=== PATIENT | female | born 1960 | race Caucasian/White ===

== ENCOUNTER 2020-06-08 22:47 | Inpatient (IN) | payer MEDICARE, OTHER ==
[2020-06-08] MEDS ORDERED: IPRATROPIUM-ALBUTEROL 3 ML NEB INHALATION STA (23:09)
--- NOTE | 2020-06-08 23:22 | ED ---
General Adult HPI - General Chief complaint: Shortness of Breath Stated complaint: JAYA Time Seen by Provider: 06/08/20 22:56 Source: EMS Mode of arrival: EMS - History of Present Illness Initial comments: 60-year-old previous smoker with history of congestive heart failure, coronary artery disease, morbid obesity, dyslipidemia presenting to the ER today for chief complaint of shortness of breath. Patient states this evening she became short of breath. She states she could hear audible wheezing. Patient denies any chest pain pressure jaw or arm pain nausea vomiting. She denies any pain in the back or abdomen.patient states she is no diagnosed history of COPD states she frequent find herself wheezing. Patient states she has not noticed any increase in weight or leg swelling. Pt denies pain on inspiration hemoptysis history DVT pulmonary embolism or unilateral leg swelling. She states she did miss her dose of Lasix this morning. Patient states that she received a breathing treatment in the ambulance which almost immediately reversed her symptoms. Patient states she is feeling much less short of breath at this time. - Related Data Home Medications Medication Instructions Recorded Confirmed Atorvastatin Calcium [Lipitor] 80 mg PO HS 10/16/13 02/25/17 Clopidogrel Bisulfate [Plavix] 75 mg PO DAILY 10/16/13 02/25/17 Metoprolol Tartrate [Lopressor] 50 mg PO BID 10/16/13 02/25/17 PARoxetine HCL [Paxil] 40 mg PO DAILY 10/16/13 02/25/17 Hydrocodone/Acetaminophen 1 tab PO Q4H PRN 09/09/15 02/25/17 [Hydrocodone-Acetamin 10-325 mg] Levothyroxine Sodium [Synthroid] 200 mcg PO DAILY 09/09/15 02/25/17 rOPINIRole HCL [Requip] 1 mg PO HS 09/09/15 02/25/17 Furosemide [Lasix] 20 mg PO DAILY 02/19/17 02/25/17 Previous Rx's Medication Instructions Recorded Amoxicillin/Potassium Clav 1 tab PO Q12HR #20 tab 02/23/17 [Augmentin 875-125 Tablet] amLODIPine [Norvasc] 5 mg PO DAILY #30 tab 02/23/17 lisinopriL [Zestril] 20 mg PO BID #60 tab 02/23/17 Allergies Allergy/AdvReac Type Severity Reaction Status Date / Time Iodinated Contrast Media Allergy Severe Anaphylaxis Verified 06/08/20 22:58 [Iodinated Contrast Media - IV Dye] ketorolac tromethamine Allergy Severe Anaphylaxis Verified 06/08/20 22:58 [From Toradol] methylprednisolone sodium Allergy Severe Anaphylaxis Verified 06/08/20 22:58 succinate [From Solu-Medrol] heparin AdvReac Rash/Hives Verified 06/08/20 22:58 Review of Systems ROS Statement: Those systems with pertinent positive or pertinent negative responses have been documented in the HPI. ROS Other: All systems not noted in ROS Statement are negative. Past Medical History Past Medical History: Heart Failure, Hypertension, Myocardial Infarction (MS) Additional Past Medical History / Comment(s): hx anemia, diverticulitis, colostomy, migraines, hypoglycemia, hx kidney stone, edwards cyst behind rt knee Last Myocardial Infarction Date:: 04/14/13 History of Any Multi-Drug Resistant Organisms: None Reported Past Surgical History: Bariatric Surgery, Bowel Resection, Section, Cholecystectomy, Heart Catheterization With Stent, Orthopedic Surgery Additional Past Surgical History / Comment(s): thyroidectomy,rt oopherectomy, left knee arthroscopic, bariatric sleeve, carmela heel spurs, lab band Past Anesthesia/Blood Transfusion Reactions: Postoperative Nausea & Vomiting (PONV) Additional Past Anesthesia/Blood Transfusion Reaction / Comment(s): Pt has received blood in past without reaction. Date of Last Stent Placement:: 2012 Past Psychological History: No Psychological Hx Reported Smoking Status: Former smoker Past Alcohol Use History: None Reported Past Drug Use History: None Reported - Past Family History Father Family Medical History: Myocardial Infarction (MS) Additional Family Medical History / Comment(s): Father of a MS at the age of 64 yrs. Mother Family Medical History: Musculoskeletal Disorder, Neurologic Disorder Additional Family Medical History / Comment(s): Mother of MS at the age of 64 yrs. General Exam - General Exam Comments Initial Comments: General: The patient is awake and alert, in no distress Eye: Pupils are equal, round and reactive to light, extra-ocular movements are intact. No nystagmus. There is normal conjunctiva bilaterally. No signs of icterus. Ears, nose, mouth and throat: There are moist mucous membranes and no oral lesions. Neck: The neck is supple, there is no tenderness or JVD. Cardiovascular: There is a regular rate and rhythm. No murmur, rub or gallop is appreciated. Respiratory: Respirations are non-labored, breath sounds are equal. INspiratory/expirator wheeze, rhonchi. NO stridor, rales.nno retractions no abdominal breathing Gastrointestinal: Soft, non-distended, non-tender abdomen without masses or organomegaly noted. There is no rebound or guarding present. Musculoskeletal: Normal ROM, no tenderness. Strength 5/5. Sensation intact. Radial and DP pulses equal bilaterally 2+. Neurological: A&O x 3. CN II-XII intact grossly, There are no obvious motor or sensory deficits. Coordination appears grossly intact. Speech is normal. Skin: Skin is warm and dry and no rashes or lesions are noted. Large LE b/l, nonpitting suspected edema. Psychiatric: Cooperative, appropriate mood & affect, normal judgment. Course Vital Signs 06/08/20 06/08/20 06/09/20 22:56 23:15 00:15 Temperature 98.1 F Pulse Rate 92 Respiratory 24 24 Rate Blood Pressure 222/130 183/107 O2 Sat by Pulse 86 L Oximetry 06/09/20 06/09/20 06/09/20 00:23 00:57 01:08 Temperature Pulse Rate 82 83 87 Respiratory 22 Rate Blood Pressure 178/117 O2 Sat by Pulse 98 Oximetry 06/09/20 06/09/20 01:11 01:19 Temperature Pulse Rate 84 Respiratory Rate Blood Pressure 195/96 O2 Sat by Pulse Oximetry - Reevaluation(s) Reevaluation #1: pt evaluated by attending 06/09/20 Reevaluation #2: Pt walked to bathroom admitted to increased SOB, BP remained elevated--cxr pulmonary edema. pt given SL nitroglycerin. Pt does not appear in distress. 06/09/20 12:58 Medical Decision Making - Medical Decision Making Labs stable. Troponin (-). obvious wheeze. no significant tachypnea nor retr actions or abdominal breathing. Diminished lung sounds/air movement. cxr pulmonary edema vs RDS. BNP elevated. Patient improved after total of 4 treatments as far as air movement and wheezing. patient was givne nitroglycerin for BP readings, hx of CHF and pulmonary edema on CXR. Patient will be admitted for monitoring of respiratory status, cardiology evaluation. Patient statse she is "breathing much better"--continues to deny chest pain. BP improved. Dr Wilder agreeable to care plan. - Lab Data Result diagrams: 06/08/20 23:21 06/08/20 23:21 Lab Results 06/08/20 06/08/20 06/08/20 Range/Units 23:21 23:21 23:21 WBC 5.6 (3.8-10.6) k/uL RBC 4.46 (3.80-5.40) m/uL Hgb 13.3 (11.4-16.0) gm/dL Hct 41.4 (34.0-46.0) % MCV 92.9 (80.0-100.0) fL MCH 29.8 (25.0-35.0) pg MCHC 32.1 (31.0-37.0) g/dL RDW 14.6 (11.5-15.5) % Plt Count 110 L (150-450) k/uL MPV 10.4 Neutrophils % 78 % Lymphocytes % 12 % Monocytes % 5 % Eosinophils % 3 % Basophils % 0 % Neutrophils # 4.4 (1.3-7.7) k/uL Lymphocytes # 0.7 L (1.0-4.8) k/uL Monocytes # 0.3 (0-1.0) k/uL Eosinophils # 0.2 (0-0.7) k/uL Basophils # 0.0 (0-0.2) k/uL PT 11.0 (9.0-12.0) sec INR 1.0 (<1.2) APTT 26.5 (22.0-30.0) sec Sodium 139 (137-145) mmol/L Potassium 5.1 (3.5-5.1) mmol/L Chloride 105 (98-107) mmol/L Carbon Dioxide 27 (22-30) mmol/L Anion Gap 7 mmol/L BUN 26 H (7-17) mg/dL Creatinine 0.92 (0.52-1.04) mg/dL Est GFR (CKD-EPI)AfAm 78 (>60 ml/min/1.73 sqM) Est GFR (CKD-EPI)NonAf 68 (>60 ml/min/1.73 sqM) Glucose 118 H (74-99) mg/dL Plasma Lactic Acid Jamison (0.7-2.0) mmol/L Calcium 8.8 (8.4-10.2) mg/dL Total Bilirubin 0.9 (0.2-1.3) mg/dL AST 46 H (14-36) U/L ALT 22 (4-34) U/L Alkaline Phosphatase 75 (38-126) U/L Troponin I (0.000-0.034) ng/mL NT-Pro-B Natriuret Pep pg/mL Total Protein 7.2 (6.3-8.2) g/dL Albumin 3.8 (3.5-5.0) g/dL Coronavirus (PCR) (Not Detectd) 06/08/20 06/08/20 06/08/20 Range/Units 23:21 23:21 23:21 WBC (3.8-10.6) k/uL RBC (3.80-5.40) m/uL Hgb (11.4-16.0) gm/dL Hct (34.0-46.0) % MCV (80.0-100.0) fL MCH (25.0-35.0) pg MCHC (31.0-37.0) g/dL RDW (11.5-15.5) % Plt Count (150-450) k/uL MPV Neutrophils % % Lymphocytes % % Monocytes % % Eosinophils % % Basophils % % Neutrophils # (1.3-7.7) k/uL Lymphocytes # (1.0-4.8) k/uL Monocytes # (0-1.0) k/uL Eosinophils # (0-0.7) k/uL Basophils # (0-0.2) k/uL PT (9.0-12.0) sec INR (<1.2) APTT (22.0-30.0) sec Sodium (137-145) mmol/L Potassium (3.5-5.1) mmol/L Chloride (98-107) mmol/L Carbon Dioxide (22-30) mmol/L Anion Gap mmol/L BUN (7-17) mg/dL Creatinine (0.52-1.04) mg/dL Est GFR (CKD-EPI)AfAm (>60 ml/min/1.73 sqM) Est GFR (CKD-EPI)NonAf (>60 ml/min/1.73 sqM) Glucose (74-99) mg/dL Plasma Lactic Acid Jamison 1.3 (0.7-2.0) mmol/L Calcium (8.4-10.2) mg/dL Total Bilirubin (0.2-1.3) mg/dL AST (14-36) U/L ALT (4-34) U/L Alkaline Phosphatase (38-126) U/L Troponin I 0.015 (0.000-0.034) ng/mL NT-Pro-B Natriuret Pep 2790 pg/mL Total Protein (6.3-8.2) g/dL Albumin (3.5-5.0) g/dL Coronavirus (PCR) (Not Detectd) 06/08/20 Range/Units 23:21 WBC (3.8-10.6) k/uL RBC (3.80-5.40) m/uL Hgb (11.4-16.0) gm/dL Hct (34.0-46.0) % MCV (80.0-100.0) fL MCH (25.0-35.0) pg MCHC (31.0-37.0) g/dL RDW (11.5-15.5) % Plt Count (150-450) k/uL MPV Neutrophils % % Lymphocytes % % Monocytes % % Eosinophils % % Basophils % % Neutrophils # (1.3-7.7) k/uL Lymphocytes # (1.0-4.8) k/uL Monocytes # (0-1.0) k/uL Eosinophils # (0-0.7) k/uL Basophils # (0-0.2) k/uL PT (9.0-12.0) sec INR (<1.2) APTT (22.0-30.0) sec Sodium (137-145) mmol/L Potassium (3.5-5.1) mmol/L Chloride (98-107) mmol/L Carbon Dioxide (22-30) mmol/L Anion Gap mmol/L BUN (7-17) mg/dL Creatinine (0.52-1.04) mg/dL Est GFR (CKD-EPI)AfAm (>60 ml/min/1.73 sqM) Est GFR (CKD-EPI)NonAf (>60 ml/min/1.73 sqM) Glucose (74-99) mg/dL Plasma Lactic Acid Jamison (0.7-2.0) mmol/L Calcium (8.4-10.2) mg/dL Total Bilirubin (0.2-1.3) mg/dL AST (14-36) U/L ALT (4-34) U/L Alkaline Phosphatase (38-126) U/L Troponin I (0.000-0.034) ng/mL NT-Pro-B Natriuret Pep pg/mL Total Protein (6.3-8.2) g/dL Albumin (3.5-5.0) g/dL Coronavirus (PCR) Not Detected (Not Detectd) Disposition Clinical Impression: Dyspnea, Pulmonary edema, Reactive airway disease, Hypertension Disposition: ADMITTED IP TO THIS HOSP Condition: Stable Is patient prescribed a controlled substance at d/c from ED?: No Time of Disposition: :33 Decision to Admit Reason: Admit from EC Decision Date: 06/09/20 Decision Time: 01:33
[2020-06-08] MEDS ORDERED: ENALAPRILAT 1.25 MG/ML 1 ML VIAL IVP STA (23:29)
--- NOTE | 2020-06-08 23:31 | XR ---
EXAMINATION TYPE: XR chest 1V portable DATE OF EXAM: 06/08/2020 COMPARISON: 09/05/2014 HISTORY: Short of breath TECHNIQUE: FINDINGS: Heart and mediastinum are normal. There is coarse pulmonary interstitial and airspace edema . Exam is limited by the patient's size. IMPRESSION: There is new pulmonary edema compared to old exam. This could be acute heart failure or R DS.
[2020-06-08] MEDS ORDERED: FUROSEMIDE 10 MG/ML 4 ML VIAL IV STA (23:33)
[2020-06-08 23:37] LABS: Basophils % (A) 0 %; Eosinophils # (A) 0.2 k/uL (0-0.7); Eosinophils % (A) 3 %; HCT 41.4 % (34.0-46.0); HGB 13.3 gm/dL (11.4-16.0); Lymphocytes # (A) 0.7 k/uL (1.0-4.8); Lymphocytes % (A) 12 %; MCH 29.8 pg (25.0-35.0); MCHC 32.1 g/dL (31.0-37.0); MCV 92.9 fL (80.0-100.0); Mean Platelet Volume 10.4; Monocytes # (A) 0.3 k/uL (0-1.0); Monocytes % (A) 5 %; Neutrophils # (A) 4.4 k/uL (1.3-7.7); Neutrophils % (A) 78 %; Platelet Count 110 k/uL (150-450); RBC 4.46 m/uL (3.80-5.40); RDW 14.6 % (11.5-15.5); WBC 5.6 k/uL (3.8-10.6)
[2020-06-08 23:47] LABS: Albumin 3.8 g/dL (3.5-5.0); Calcium 8.8 mg/dL (8.4-10.2); Potassium 5.1 mmol/L (3.5-5.1); Total Bilirubin 0.9 mg/dL (0.2-1.3); Total Protein 7.2 g/dL (6.3-8.2)
[2020-06-09 00:08] LABS: Partial Thromboplastin Time 26.5 sec (22.0-30.0)
[2020-06-09] MEDS ORDERED: NITROGLYCERIN SL TABS 0.4 MG TAB SUBLINGUAL PRN (00:38)
[2020-06-09] MEDS ORDERED: NITROGLYCERIN SL TABS 0.4 MG TAB SUBLINGUAL STA ×2 (00:49→01:30)
[2020-06-09] MEDS ORDERED: IPRATROPIUM-ALBUTEROL 3 ML NEB INHALATION STA (00:51)
[2020-06-09] MEDS ORDERED: NITROGLYCERIN OINT 1 INCH/GM PACKET TOPICAL STA (01:20)
[2020-06-09] MEDS ORDERED: IPRATROPIUM-ALBUTEROL 3 ML NEB INHALATION SCH (02:00)
[2020-06-09] MEDS: IPRATROPIUM-ALBUTEROL 3 ML NEB INHALATION SCH ×5 (04:23→20:39)
[2020-06-09] MEDS ORDERED: amLODIPine 5 MG TAB PO SCH (09:00)
[2020-06-09] MEDS ORDERED: FUROSEMIDE 20 MG TAB PO SCH (09:00)
[2020-06-09] MEDS: MULTIVITAMINS, THERA 1 EACH TAB PO SCH (09:41)
[2020-06-09] MEDS: lisinopriL 20 MG TAB PO SCH ×2 (09:41→20:06)
[2020-06-09] MEDS: CLOPIDOGREL 75 MG TAB PO SCH (09:41)
[2020-06-09] MEDS: METOPROLOL TARTRATE 50 MG TAB PO SCH ×2 (09:42→20:05)
[2020-06-09] MEDS: PARoxetine 20 MG TAB PO SCH (09:42)
[2020-06-09] MEDS: FUROSEMIDE 10 MG/ML 4 ML VIAL IV SCH ×2 (09:42→16:06)
[2020-06-09] MEDS: ASPIRIN 81 MG PO SCH (09:42)
[2020-06-09] MEDS: LEVOTHYROXINE 100 MCG TAB PO SCH (09:46)
[2020-06-09] MEDS: buPROPion XL 150 MG TAB.ER.24H PO SCH (10:24)
[2020-06-09] MEDS: SILVER sulfADIAZINE Cream 400 GM 1 APPLIC APPLIC TOPICAL SCH (10:25)
[2020-06-09] MEDS ORDERED: MINERAL OIL-WHITE PETROLATUM 120 GM JAR TOPICAL PRN (11:24)
[2020-06-09] MEDS ORDERED: amLODIPine 5 MG TAB PO STA (11:31)
[2020-06-09] MEDS ORDERED: diphenhydrAMINE 50 MG/ML 1 ML VIAL IVP PRN (11:34)
[2020-06-09] MEDS: ENOXAPARIN 40 MG/0.4 ML SYRINGE SQ SCH (12:38)
[2020-06-09] MEDS: NITROGLYCERIN OINT 1 INCH/GM PACKET TOPICAL SCH ×2 (12:39→21:57)
[2020-06-09] MEDS: HYDROcodone/APAP 10-325MG 1 EACH TAB PO PRN ×3 (14:05→21:57)
--- NOTE | 2020-06-09 18:50 | CONS ---
CONSULTATION CHIEF COMPLAINT: Sudden onset shortness of breath. Radha is a 60-year-old lady with history of coronary artery disease, status post prior multiple myocardial infarctions, hypertension, who is admitted to hospital with sudden onset shortness of breath at home. She was found to be in pulmonary edema and Cardiology has been consulted for the same. EKG shows sinus rhythm with anterolateral ST-T wave changes suggestive of ischemia. Lab showed that the tropes are negative, coronavirus is negative, BNP is elevated at 2790. A chest x-ray shows pulmonary edema. The patient has received IV Lasix with significant improvement in her symptoms. PAST MEDICAL HISTORY: Significant for hypertension, COPD, hypothyroidism, coronary artery disease, prior myocardial infarction. MEDICATIONS: Include Requip, Zestril, Wellbutrin, Norvasc 5 daily, Paxil 40 daily, multivitamins, Lopressor 50 b.i.d., Synthroid, Lasix 20 daily, Plavix 75 daily, Lipitor 80, aspirin. ALLERGIES: Patient is allergic to IV DYE. FAMILY HISTORY: Negative for premature coronary artery disease. SOCIAL HISTORY: Negative for smoking, EtOH abuse, or drug abuse. REVIEW OF SYSTEMS: HEENT is unremarkable. CARDIAC: As described above. RESPIRATORY: As described above. GI: Negative. GENITOURINARY: Negative. ALLERGY: None. SKIN: Unremarkable. MUSCULOSKELETAL: Significant for arthritis. PSYCHOSOCIAL: Negative. ENDOCRINE: Negative. CONSTITUTIONAL: Negative. ONCOLOGICAL: Negative. YARDER PUNCHER: Negative. Rest of the system review is not relevant. EXAM: Heart rate is 60 beats per minute, blood pressure is 170/93, respiratory is 18. Chest exam reveals good air entry bilaterally without any crackles or rhonchi. Heart exam reveals first and second heart sounds. No gallop. Has a systolic murmur at the apex. Abdomen is soft. Exam of extremities did not reveal any edema. Peripheral pulses are felt. LAB: Show a hemoglobin of 13.3, platelet count is 110. Potassium is 5, creatinine is 0.9. Troponins are negative. BNP is elevated. Coronavirus is negative. ASSESSMENT: 1. Acute onset pulmonary edema. 2. Hypertensive heart disease with hypertensive urgency. 3. Coronary artery disease status post prior myocardial infarction. PLAN: I will obtain a 2D echo to evaluate her LV function, treat her with IV Lasix, control her blood pressures more optimally by increasing the dose of Norvasc. I will continue aspirin, Plavix, Lipitor and Zestril and start her on Nitropaste 1 inch t.i.d. We will adjust her medications as needed based on how she responds to therapy. MMEDILMAL / IJN: [id number] /
[2020-06-09] MEDS: ATORVASTATIN 80 MG TAB PO SCH (20:05)
--- NOTE | 2020-06-09 23:27 | P.HPIM ---
History of Present Illness H&P Date: 06/09/20 Chief Complaint: Shortness of breath. Patient is a 60-year-old female with a known history of coronary artery disease with stent placement x2, CHF, previous history of smoking and morbid obesity presents to ER with complaints of worsening shortness of breath. Patient states that he has been having worsening shortness of breath, exertional dyspnea and leg swelling for the past 2 weeks and last night it got worse and which made her to come to ER. Patient felt like chest tightness. No radiation of the chest pain. No associated nausea vomiting or diaphoresis. No headache or dizziness or lightheadedness. No recent illnesses. No cough or sputum production. Patient has previous history of smoking. Chest x-ray showed there is new pulmonary edema compared to old exam. Could be due to acute heart failure or RDS. EKG showed sinus rhythm with premature atrial complexes. Laboratory data showed BUN 26 creatinine 0.92, AST 46 ALT 22, troponin x3 - and proBNP 2790 and COVID-19 PCR is not detected. Review of Systems Constitutional: Patient denies any fever or chills . No generalized weakness or weight loss. Abdomen: Patient denied nausea vomiting and diarrhea and abdominal pain. Cardiovascular: Patient denies any chest pain, worsening short of breath no palpitations. Respiratory: patient denied any cough or sputum production. No shortness of breath Neurologic: Patient denied any numbness or tingling headache. Musculoskeletal: Patient denies any complaints of joint swelling or deformity. Skin: Negative Psychiatric: Negative Endocrine: No heat or cold intolerance. No recent weight gain. Genitourinary: No dysuria or hematuria. All other 14 point ROS negative except the above Past Medical History Past Medical History: Heart Failure, Hypertension, Myocardial Infarction (LA) Additional Past Medical History / Comment(s): hx anemia, diverticulitis, colostomy, migraines, hypoglycemia, hx kidney stone, edwards cyst behind rt knee Last Myocardial Infarction Date:: 04/14/13 History of Any Multi-Drug Resistant Organisms: None Reported Past Surgical History: Bariatric Surgery, Bowel Resection, Section, Cholecystectomy, Heart Catheterization With Stent, Orthopedic Surgery Additional Past Surgical History / Comment(s): thyroidectomy,rt oopherectomy, le ft knee arthroscopic, bariatric sleeve, carmela heel spurs, lab band Past Anesthesia/Blood Transfusion Reactions: Postoperative Nausea & Vomiting (PONV) Additional Past Anesthesia/Blood Transfusion Reaction / Comment(s): Pt has received blood in past without reaction. Date of Last Stent Placement:: 2012 Past Psychological History: No Psychological Hx Reported Additional Psychological History / Comment(s): Pt resides with her spouse and an adult son and 2 roomates. Pt uses a cane if outside the home. Pt drives. Smoking Status: Former smoker Past Alcohol Use History: None Reported Additional Past Alcohol Use History / Comment(s): Pt started smoking in 1978 and quit in 2002. Past Drug Use History: None Reported - Past Family History Father Family Medical History: Myocardial Infarction (LA) Additional Family Medical History / Comment(s): Father of a LA at the age of 64 yrs. Mother Family Medical History: Musculoskeletal Disorder, Neurologic Disorder Additional Family Medical History / Comment(s): Mother of MS at the age of 64 yrs. Medications and Allergies Home Medications Medication Instructions Recorded Confirmed Type Atorvastatin Calcium [Lipitor] 80 mg PO HS 10/16/13 06/09/20 History Clopidogrel Bisulfate [Plavix] 75 mg PO DAILY 10/16/13 06/09/20 History Metoprolol Tartrate [Lopressor] 50 mg PO BID 10/16/13 06/09/20 History PARoxetine HCL [Paxil] 40 mg PO DAILY 10/16/13 06/09/20 History Hydrocodone/Acetaminophen 1 tab PO QID PRN 09/09/15 06/09/20 History [Hydrocodone-Acetamin 10-325 mg] Levothyroxine Sodium [Synthroid] 200 mcg PO DAILY 09/09/15 06/09/20 History rOPINIRole HCL [Requip] 1 mg PO HS 09/09/15 06/09/20 History Furosemide [Lasix] 20 mg PO DAILY 02/19/17 06/09/20 History amLODIPine [Norvasc] 5 mg PO DAILY #30 tab 02/23/17 06/09/20 Rx lisinopriL [Zestril] 20 mg PO BID #60 tab 02/23/17 06/09/20 Rx Aspirin EC [Ecotrin Low Dose] 81 mg PO DAILY 06/09/20 06/09/20 History Multivitamins, Thera [Multivitamin 1 tab PO DAILY 06/09/20 06/09/20 History (formulary)] Silver Sulfadiazine [SSD 1% Cream] 1 applic TOPICAL DAILY 06/09/20 06/09/20 History buPROPion XL [Wellbutrin Xl] 150 mg PO DAILY 06/09/20 06/09/20 History Allergies Allergy/AdvReac Type Severity Reaction Status Date / Time Iodinated Contrast Media Allergy Severe Anaphylaxis Verified 06/09/20 08:26 [Iodinated Contrast Media - IV Dye] ketorolac tromethamine Allergy Severe Anaphylaxis Verified 06/09/20 08:26 [From Toradol] methylprednisolone sodium Allergy Severe Anaphylaxis Verified 06/09/20 08:26 succinate [From Solu-Medrol] heparin AdvReac Rash/Hives Verified 06/09/20 08:26 Physical Exam Vitals: Vital Signs Temp Pulse Pulse Resp BP BP Pulse Ox 06/09/20 08:20 80 06/09/20 08:10 76 06/09/20 07:54 98.6 F 105 H 18 173/93 92 L 06/09/20 04:37 84 06/09/20 04:23 82 06/09/20 04:00 98.0 F 72 18 161/108 95 06/09/20 02:28 20 06/09/20 02:05 97.9 F 86 20 165/98 99 06/09/20 01:19 195/96 06/09/20 01:11 84 06/09/20 01:08 87 22 178/117 98 06/09/20 00:57 83 06/09/20 00:23 82 06/09/20 00:15 183/107 06/08/20 23:15 24 06/08/20 22:56 98.1 F 92 24 222/130 86 L Intake and Output 06/08/20 06/09/20 06/09/20 22:59 06:59 14:59 Intake Total 240 120 Output Total 1800 1175 Balance -1560 -1055 Intake: Oral 240 120 Output: Urine 1800 1175 Other: Voiding Method Toilet # Voids 2 Weight 145.15 kg 171.7 kg PHYSICAL EXAMINATION: Patient is lying in the bed comfortably, no acute distress, awake alert and oriented.. HEENT: Normocephalic. Neck is supple. Pupils reactive. Nostrils clear. Oral ca vity is moist. Ears reveal no drainage. Neck reveals no JVD, carotid bruits, or thyromegaly. CHEST EXAMINATION: Trachea is central. Symmetrical expansion. Bibasilar crackles. No wheezing nonlabored breathing.. CARDIAC: Normal S1, S2 with no gallops. No murmurs ABDOMEN: Soft. Bowel sounds normal. No organomegaly. No abdominal bruits. Extremities: Bilateral 3+ pedal edema. Venous stasis changes. No clubbing or cyanosis Neurologically awake, alert, oriented x3 with well-coordinated movements. No focal deficits noted Skin: No rash or skin lesions. Psychiatric: Coperative. Nonsuicidal Musculoskeletal: No joint swelling or deformity. Normal range of motion. Results CBC & Chem 7: 06/08/20 23:21 06/08/20 23:21 Labs: Abnormal Lab Results - Last 24 Hours (Table) 06/08/20 06/08/20 Range/Units 23:21 23:21 Plt Count 110 L (150-450) k/uL Lymphocytes # 0.7 L (1.0-4.8) k/uL BUN 26 H (7-17) mg/dL Glucose 118 H (74-99) mg/dL AST 46 H (14-36) U/L Thrombosis Risk Factor Assmnt - DVT/VTE Prophylaxis DVT/VTE Prophylaxis: Pharmacologic Prophylaxis ordered - Choose All That Apply Any of the Below Risk Factors Present?: Yes Each Factor Represents 1 point: Obesity (BMI >25) Other Risk Factors: No Thrombosis Risk Factor Assessment Total Risk Factor Score: 1 Thrombosis Risk Factor Assessment Level: Low Risk Assessment and Plan Assessment: Shortness of breath secondary to acute on chronic CHF. followup TTE Acute pulmonary edema Hypertensive urgency Coronary artery disease history of stent placement Morbid obesity with BMI 67.1 DVT prophylaxis with Lovenox. Plan: Patient will be continued Lasix 40 mg IV twice daily and monitor renal function. Continue the aspirin statins and Plavix. Continue with home medications including metoprolol and lisinopril. Cardiology was consulted. Follow-up 2D echocardiogram report and further recommendations based on clinical course. Time with Patient: Greater than 30
[2020-06-10] MEDS: IPRATROPIUM-ALBUTEROL 3 ML NEB INHALATION SCH ×6 (00:11→19:27)
[2020-06-10 02:51] LABS: Cholesterol 170 mg/dL (<200); HDL Cholesterol 52 mg/dL (40-60); LDL Cholesterol,Calculated 100 mg/dL (0-99); Triglycerides 88 mg/dL (<150)
[2020-06-10] MEDS: NITROGLYCERIN OINT 1 INCH/GM PACKET TOPICAL SCH ×3 (05:49→19:41)
[2020-06-10] MEDS: HYDROcodone/APAP 10-325MG 1 EACH TAB PO PRN ×5 (05:50→23:54)
[2020-06-10] MEDS: LEVOTHYROXINE 100 MCG TAB PO SCH (06:21)
[2020-06-10 09:35] LABS: HCT 43.4 % (34.0-46.0); HGB 13.4 gm/dL (11.4-16.0); Hypochromasia Slight; MCH 29.3 pg (25.0-35.0); MCHC 30.9 g/dL (31.0-37.0); MCV 94.8 fL (80.0-100.0); Mean Platelet Volume 9.5; Platelet Count 123 k/uL (150-450); RBC 4.58 m/uL (3.80-5.40); RDW 14.5 % (11.5-15.5); WBC 6.9 k/uL (3.8-10.6)
[2020-06-10 09:47] LABS: Potassium 4.1 mmol/L (3.5-5.1)
[2020-06-10] MEDS: amLODIPine 10 MG TAB PO SCH (09:49)
[2020-06-10] MEDS: ASPIRIN 81 MG PO SCH (09:49)
[2020-06-10] MEDS: lisinopriL 20 MG TAB PO SCH ×2 (09:50→19:41)
[2020-06-10] MEDS: METOPROLOL TARTRATE 50 MG TAB PO SCH ×2 (09:50→19:41)
[2020-06-10] MEDS: MULTIVITAMINS, THERA 1 EACH TAB PO SCH (09:50)
[2020-06-10] MEDS: PARoxetine 20 MG TAB PO SCH (09:50)
[2020-06-10] MEDS: ENOXAPARIN 40 MG/0.4 ML SYRINGE SQ SCH (09:50)
[2020-06-10] MEDS: CLOPIDOGREL 75 MG TAB PO SCH (09:50)
[2020-06-10] MEDS: FUROSEMIDE 10 MG/ML 4 ML VIAL IV SCH ×2 (09:50→16:39)
[2020-06-10] MEDS: SILVER sulfADIAZINE Cream 400 GM 1 APPLIC APPLIC TOPICAL SCH (09:51)
[2020-06-10] MEDS: buPROPion XL 150 MG TAB.ER.24H PO SCH (09:52)
--- NOTE | 2020-06-10 16:59 | P.PN ---
Subjective Progress Note Date: 06/10/20 This is a 60-year-old female admitted with acute on chronic CHF, acute pulmonary edema, hypertensive urgency and multiple other medical issues. Diuresing well on Lasix IV push with significant clinical improvement. Creatinine 0.89. Denies chest pain, palpitations. Maintaining O2 sats in the high 90s on 2 L nasal cannula. Hypertensive this morning, Norvasc dose increased. Objective - Vital Signs Vital signs: Vital Signs Temp 97.7 F 06/10/20 15:48 Pulse 63 06/10/20 15:48 Resp 18 06/10/20 15:48 BP 125/62 06/10/20 15:48 Pulse Ox 90 L 06/10/20 15:48 Intake & Output 06/09/20 06/10/20 06/10/20 18:59 06:59 18:59 Intake Total 420 240 760 Output Total 1925 850 600 Balance -1505 610 160 Weight 171 kg Intake: Oral 420 240 760 Output: Urine 1925 850 600 Other: Voiding Method Toilet Toilet # Voids 1 1 2 - Exam PHYSICAL EXAMINATION: GENERAL: Alert and oriented 3, lying in the bed comfortably, no acute distress HEENT: Normocephalic. Neck is supple. Pupils reactive. Oral mucosa moist. Neck reveals no JVD, carotid bruits, or thyromegaly. CHEST EXAMINATION: Trachea is central. Symmetrical expansion. No rhonchi, no crackles. No wheezing, nonlabored breathing.. CARDIAC: Normal S1, S2 with no gallops. Systolic murmur. ABDOMEN: Soft. Bowel sounds normal. No organomegaly. No abdominal bruits. Extremities: Decreasing edema, Venous stasis changes. No clubbing or cyanosis Neurologically: CN II through XII grossly intact, well-coordinated movements. No focal deficits noted Skin: No rash, warm and dry - Labs CBC & Chem 7: 06/10/20 08:55 06/10/20 08:55 Labs: Abnormal Lab Results - Last 24 Hours (Table) 06/09/20 06/10/20 06/10/20 Range/Units 05:29 08:55 08:55 MCHC 30.9 L (31.0-37.0) g/dL Plt Count 123 L (150-450) k/uL Carbon Dioxide 33 H (22-30) mmol/L BUN 19 H (7-17) mg/dL Glucose 113 H (74-99) mg/dL LDL Cholesterol, Calc 100 H (0-99) mg/dL Assessment and Plan Assessment: Shortness of breath secondary to acute on chronic CHF. Acute pulmonary edema Hypertensive urgency Coronary artery disease history of prior PR with stent placement Morbid obesity with BMI 67.1 Plan: Continue on current medication regime ,monitoring and symptomatic treatment. 2-D echo in progress. Anticoagulated on aspirin, Plavix. Continue diuresing, antihypertensives adjusted as per cardiology. Close monitoring of bl ood pressure. The impression and plan of care has been dictated as directed. : I performed a history and examination of this patient, discussed the same with the dictator. I agree with the dictator's note ,documented as a scribe. Any additional findings or plans will be noted.
--- NOTE | 2020-06-10 18:41 | ECHOF ---
Referral Reason:lv fxn MEASUREMENTS -------- HEIGHT: 160.0 cm WEIGHT: 170.6 kg BP: 158/83 IVSd: 1.6 cm (0.6 - 1.1) LVIDd: 5.3 cm (3.9 - 5.3) LVPWd: 2.1 cm (0.6 - 1.1) IVSs: 1.7 cm LVIDs: 4.6 cm LVPWs: 2.1 cm RVIDd: 4.0 cm (< 3.3) LAESV Index (A-L): 41.10 ml/m Ao Diam: 3.1 cm (2.0 - 3.7) AV Cusp: 1.7 cm (1.5 - 2.6) MV E Casey: 1.15 m/s MV DecT: 164 ms MV A Casey: 0.71 m/s MV E/A Ratio: 1.62 %FS: 14.04 % EDV(Teich): 220.56 ml EF(Teich): 29.20 % ESV(Teich): 156.17 ml IVSd: 1.50 cm (0.6 - 1.1) IVSs: 1.61 cm LVIDd: 6.56 cm (3.9 - 5.3) LVIDs: 5.64 cm LVPWd: 1.38 cm (0.6 - 1.1) LVPWs: 1.70 cm SV(Teich): 64.40 ml FINDINGS -------- Sinus rhythm with extra systolic beats. This was a technically difficult study with suboptimal views. The left ventricle is mildly dilated. There is moderate concentric left ventricular hypertrophy. Overall left ventricular systolic function is moderate-severely impaired with, an EF between 30 - 35 %. The right ventricle is moderately enlarged. LA is severely dilated >40 ml/m2 The right atrial size is normal. 5.0mg of Lumason was utilized for enhancement of images Interatrial and interventricular septum intact. There is no evidence of aortic regurgitation. There is no evidence of aortic stenosis. [id number] mitral regurgitation is present. The tricuspid valve was not well visualized. No regurgitation noted Unable to estimate RVSP due t o inadequate TR jet spectral doppler profile. There is no pulmonic regurgitation present. The aortic root size is normal. IVC Not well visulized. There is no pericardial effusion. CONCLUSIONS -------- 1. The left ventricle is mildly dilated. 2. There is moderate concentric left ventricular hypertrophy. 3. Overall left ventricular systolic function is moderate-severely impaired with, an EF between 30 - 35 %. 4. The right ventricle is moderately enlarged. 5. LA is severely dilated >40 ml/m2 6. Qnchimsj-fv-[id number] mitral regurgitation is present. HARDWARE SALES ASSISTANT: Nohemy Randall RDCS
[2020-06-10] MEDS: ATORVASTATIN 80 MG TAB PO SCH (19:41)
[2020-06-10] MEDS ORDERED: IPRATROPIUM-ALBUTEROL 3 ML NEB INHALATION PRN (20:17)
[2020-06-11] MEDS: NITROGLYCERIN OINT 1 INCH/GM PACKET TOPICAL SCH ×3 (03:07→19:37)
[2020-06-11] MEDS: HYDROcodone/APAP 10-325MG 1 EACH TAB PO PRN ×4 (05:42→23:35)
[2020-06-11] MEDS: LEVOTHYROXINE 100 MCG TAB PO SCH (05:42)
[2020-06-11] MEDS: IPRATROPIUM-ALBUTEROL 3 ML NEB INHALATION SCH ×4 (07:34→20:47)
[2020-06-11] MEDS: PARoxetine 20 MG TAB PO SCH (08:25)
[2020-06-11] MEDS: ENOXAPARIN 40 MG/0.4 ML SYRINGE SQ SCH (08:26)
[2020-06-11] MEDS: FUROSEMIDE 10 MG/ML 4 ML VIAL IV SCH ×2 (08:26→19:37)
[2020-06-11] MEDS: METOPROLOL TARTRATE 50 MG TAB PO SCH ×2 (08:26→19:37)
[2020-06-11] MEDS: amLODIPine 10 MG TAB PO SCH (08:26)
[2020-06-11] MEDS: buPROPion XL 150 MG TAB.ER.24H PO SCH (08:26)
[2020-06-11] MEDS: CLOPIDOGREL 75 MG TAB PO SCH (08:26)
[2020-06-11] MEDS: lisinopriL 20 MG TAB PO SCH ×2 (08:26→19:37)
[2020-06-11] MEDS: MULTIVITAMINS, THERA 1 EACH TAB PO SCH (08:26)
[2020-06-11] MEDS: ASPIRIN 81 MG PO SCH (08:26)
[2020-06-11] MEDS: SILVER sulfADIAZINE Cream 400 GM 1 APPLIC APPLIC TOPICAL SCH (08:27)
[2020-06-11 09:24] LABS: Basophils % (A) 1 %; Eosinophils # (A) 0.3 k/uL (0-0.7); Eosinophils % (A) 5 %; HCT 43.1 % (34.0-46.0); HGB 13.1 gm/dL (11.4-16.0); Hypochromasia Slight; Lymphocytes # (A) 0.7 k/uL (1.0-4.8); Lymphocytes % (A) 13 %; MCH 29.1 pg (25.0-35.0); MCHC 30.3 g/dL (31.0-37.0); MCV 95.8 fL (80.0-100.0); Mean Platelet Volume 9.7; Monocytes # (A) 0.4 k/uL (0-1.0); Monocytes % (A) 6 %; Neutrophils # (A) 4.1 k/uL (1.3-7.7); Neutrophils % (A) 74 %; Platelet Count 114 k/uL (150-450); RDW 14.6 % (11.5-15.5); WBC 5.6 k/uL (3.8-10.6)
[2020-06-11 09:32] LABS: Calcium 8.8 mg/dL (8.4-10.2); Potassium 4.3 mmol/L (3.5-5.1)
--- NOTE | 2020-06-11 14:05 | P.PN ---
Subjective Progress Note Date: 06/11/20 This is a 60-year-old female admitted with acute on chronic CHF, acute pulmonary edema, hypertensive urgency and multiple other medical issues. Diuresing well on Lasix IV push with significant clinical improvement. Creatinine 0.89. Denies chest pain, palpitations. Maintaining O2 sats in the high 90s on 2 L nasal cannula. Hypertensive this morning, Norvasc dose increased. 06/11/2020 Diuresing well on Lasix IV push with 24-hour I&O reflecting a negative fluid balance. Renal function mildly worsening, BUN 30, creatinine 1.11. Blood pressure remains well controlled. Echo reported moderately severe impaired LV function, EF 30-35%, moderate to severe mitral regurgitation. Denies chest pain, palpitations. Maintaining O2 sats in the 90s on 2 L nasal cannula. Objective - Vital Signs Vital signs: Vital Signs Temp 98.7 F 06/11/20 11:59 Pulse 59 L 06/11/20 11:59 Resp 20 06/11/20 11:59 BP 138/68 06/11/20 11:59 Pulse Ox 96 06/11/20 11:59 Intake & Output 06/10/20 06/11/20 06/11/20 18:59 06:59 18:59 Intake Total 996 1074 480 Output Total 846 699 0399 Balance 396 374 -1320 Weight 166.3 kg Intake: Oral 996 1074 480 Output: Urine 529 206 3326 Other: Voiding Method Toilet Toilet Toilet # Voids 2 1 - Exam PHYSICAL EXAMINATION: GENERAL: Alert and oriented 3, sitting up in bed, no acute distress HEENT: Normocephalic. Neck is supple. Pupils reactive. Oral mucosa moist. Neck reveals no JVD, carotid bruits, or thyromegaly. CHEST EXAMINATION:Symmetrical expansion.Nonlabored respiratory effort. No rhonchi, no crackles. No wheezing, CARDIAC: Normal S1, S2 with no gallops. Systolic murmur. ABDOMEN: Soft. Bowel sounds normal. No organomegaly. No abdominal bruits. Extremities: Decreasing edema, Venous stasis changes. No clubbing or cyanosis Neurologically: CN II through XII grossly intact, well-coordinated movements. No focal deficits noted Skin: No rash, warm and dry - Labs CBC & Chem 7: 06/11/20 08:13 06/11/20 08:13 Labs: Abnormal Lab Results - Last 24 Hours (Table) 06/11/20 06/11/20 Range/Units 08:13 08:13 MCHC 30.3 L (31.0-37.0) g/dL Plt Count 114 L (150-450) k/uL Lymphocytes # 0.7 L (1.0-4.8) k/uL Chloride 97 L (98-107) mmol/L Carbon Dioxide 35 H (22-30) mmol/L BUN 31 H (7-17) mg/dL Creatinine 1.11 H (0.52-1.04) mg/dL Glucose 129 H (74-99) mg/dL Assessment and Plan Assessment: Shortness of breath secondary to acute on chronic CHF systolic dysfunction, EF 30-35%,. Acute pulmonary edema Hypertensive urgency Moderate to severe mitral regurgitation Coronary artery disease history of prior [place] with stent placement Morbid obesity with BMI 67.1 Plan: Continue on current medication regime ,monitoring and symptomatic treatment. Diuresing as per cardiology, close monitoring of renal function, possibly convert over to oral tomorrow .Anticoagulated on aspirin, Plavix. EF 30-35%, obtaining prior office echos for comparison. Patient states she follows in the office with Dr. Barriga. The impression and plan of care has been dictated as directed. : I performed a history and examination of this patient, discussed the same with the dictator. I agree with the dictator's note ,documented as a scribe. Any additional findings or plans will be noted.
[2020-06-11] MEDS: ATORVASTATIN 80 MG TAB PO SCH (19:37)
[2020-06-12] MEDS: NITROGLYCERIN OINT 1 INCH/GM PACKET TOPICAL SCH ×3 (03:54→19:30)
[2020-06-12 05:04] LABS: Calcium 8.9 mg/dL (8.4-10.2); Potassium 4.1 mmol/L (3.5-5.1)
[2020-06-12] MEDS: LEVOTHYROXINE 100 MCG TAB PO SCH (05:44)
[2020-06-12] MEDS: HYDROcodone/APAP 10-325MG 1 EACH TAB PO PRN ×3 (05:44→18:44)
[2020-06-12] MEDS: IPRATROPIUM-ALBUTEROL 3 ML NEB INHALATION SCH ×4 (08:06→20:07)
[2020-06-12] MEDS: ENOXAPARIN 40 MG/0.4 ML SYRINGE SQ SCH (08:21)
[2020-06-12] MEDS: PARoxetine 20 MG TAB PO SCH (08:21)
[2020-06-12] MEDS: FUROSEMIDE 10 MG/ML 4 ML VIAL IV SCH ×2 (08:21→19:30)
[2020-06-12] MEDS: CLOPIDOGREL 75 MG TAB PO SCH (08:21)
[2020-06-12] MEDS: buPROPion XL 150 MG TAB.ER.24H PO SCH (08:22)
[2020-06-12] MEDS: ASPIRIN 81 MG PO SCH (08:22)
[2020-06-12] MEDS: MULTIVITAMINS, THERA 1 EACH TAB PO SCH (08:22)
[2020-06-12] MEDS: amLODIPine 10 MG TAB PO SCH (08:22)
[2020-06-12] MEDS: METOPROLOL TARTRATE 25 MG TAB PO SCH ×2 (08:22→19:30)
[2020-06-12] MEDS: lisinopriL 20 MG TAB PO SCH ×2 (08:22→19:30)
[2020-06-12] MEDS: SILVER sulfADIAZINE Cream 400 GM 1 APPLIC APPLIC TOPICAL SCH (08:23)
--- NOTE | 2020-06-12 08:58 | P.PN ---
Subjective Progress Note Date: 06/12/20 Principal diagnosis: Heart failure with reduced ejection fraction exacerbation/cardiomyopathy of unknown etiology This is a pleasant 60-year-old female patient with coronary artery disease as well as hypertension and obesity who was admitted to the hospital with increasing shortness of breath and she was diagnosed with pulmonary edema. The patient subsequently was started on Lasix. She underwent an echocardiogram which revealed cardiomyopathy was EF around 35%. No prior echocardiogram in the system to compare to this one. The patient was seen today. She is feeling better indeterminable shortness of breath. She still have lower extremities nonpitting edema noted and also diminished breathing sounds on examination. Currently she is on Lasix IV. She is tolerating that fairly well. The creatinine continues to be stable. She is on beta saskia as well as MADYSON inhibitor. I am going to add Aldactone to the current medical regimen. The patient need to undergo a coronary angiogram either as an inpatient or outpatient to rule out severe underlying coronary artery disease as an etiology for her cardiomyopathy unless sats procedure was performed. I am going to discuss that with her in details. Objective - Vital Signs Vital signs: Vital Signs Temp 98.6 F 06/12/20 08:20 Pulse 82 06/12/20 08:20 Resp 20 06/12/20 08:20 BP 125/65 06/12/20 08:20 Pulse Ox 95 06/12/20 08:20 Intake & Output 06/11/20 06/12/20 06/12/20 18:59 06:59 18:59 Intake Total 1020 480 240 Output Total 2200 800 Balance -1180 -320 240 Weight 164.7 kg Intake: Oral 1020 480 240 Output: Urine 2200 800 Other: Voiding Method Toilet Toilet # Voids 1 - Constitutional General appearance: Present: no acute distress - Respiratory Respiratory: bilateral: diminished - Cardiovascular Rhythm: regular Heart sounds: normal: S1, S2 - Labs CBC & Chem 7: 06/11/20 08:13 06/12/20 04:30 Labs: Abnormal Lab Results - Last 24 Hours (Table) 06/11/20 06/11/20 06/12/20 Range/Units 08:13 08:13 04:30 MCHC 30.3 L (31.0-37.0) g/dL Plt Count 114 L (150-450) k/uL Lymphocytes # 0.7 L (1.0-4.8) k/uL Chloride 97 L 96 L (98-107) mmol/L Carbon Dioxide 35 H 39 H (22-30) mmol/L BUN 31 H 35 H (7-17) mg/dL Creatinine 1.11 H 1.20 H (0.52-1.04) mg/dL Glucose 129 H 102 H (74-99) mg/dL Assessment and Plan Assessment: Assessment #1 heart failure with reduced ejection fraction exacerbation #2 cardiomyopathy of unknown etiology #3 coronary artery disease #4 hypertension #5 obesity Plan #1 continue the Lasix for additional 24 hours #2 add Aldactone to the current medical regimen #3 continue monitor the kidney function and electrolytes #4 coronary angiogram down the line
[2020-06-12] MEDS: SPIRONOLACTONE 25 MG TAB PO SCH (09:58)
--- NOTE | 2020-06-12 15:17 | P.PN ---
Subjective Progress Note Date: 06/12/20 This is a 60-year-old female admitted with acute on chronic CHF, acute pulmonary edema, hypertensive urgency and multiple other medical issues. Diuresing well on Lasix IV push with significant clinical improvement. Creatinine 0.89. Denies chest pain, palpitations. Maintaining O2 sats in the high 90s on 2 L nasal cannula. Hypertensive this morning, Norvasc dose increased. 06/11/2020 Diuresing well on Lasix IV push with 24-hour I&O reflecting a negative fluid balance. Renal function mildly worsening, BUN 30, creatinine 1.11. Blood pressure remains well controlled. Echo reported moderately severe impaired LV function, EF 30-35%, moderate to severe mitral regurgitation. Denies chest pain, palpitations. Maintaining O2 sats in the 90s on 2 L nasal cannula. 06/12/2020 continue on Lasix IV push, with decreased bodyweight. Creatinine up to 1.2. Aldactone added to med regimen. Denies chest pain, palpitations or shortness of breath. Maintaining O2 sats in the 90s on 2 L nasal cannula O2. Objective - Vital Signs Vital signs: Vital Signs Temp 98.3 F 06/12/20 11:45 Pulse 62 06/12/20 11:45 Resp 18 06/12/20 11:45 BP 152/90 06/12/20 11:45 Pulse Ox 95 06/12/20 11:45 Intake & Output 06/11/20 06/12/20 06/12/20 18:59 06:59 18:59 Intake Total 1020 480 480 Output Total 2200 800 500 Balance -1180 -320 -20 Weight 164.7 kg Intake: Oral 1020 480 480 Output: Urine 2200 800 500 Other: Voiding Method Toilet Toilet Toilet # Voids 1 - Exam PHYSICAL EXAMINATION: GENERAL: Alert and oriented 3, sitting up in bed, no acute distress. HEENT: Normocephalic. Neck is supple. Pupils reactive. Oral mucosa moist. Neck: Supple, no JVD. CHEST EXAMINATION:Symmetrical expansion.Nonlabored respiratory effort. No rhonchi, no crackles. No wheezing, CARDIAC: Normal S1, S2 with no gallops. Systolic murmur. ABDOMEN: Soft. Bowel sounds normal. No organomegaly. No abdominal bruits. Extremities: Decreasing edema, Venous stasis changes. Homer wrapped. No clubbing or cyanosis. Neurologically: CN II through XII grossly intact, well-coordinated movements. No focal deficits noted Skin: No rash, warm and dry - Labs CBC & Chem 7: 06/11/20 08:13 06/12/20 04:30 Labs: Abnormal Lab Results - Last 24 Hours (Table) 06/12/20 Range/Units 04:30 Chloride 96 L (98-107) mmol/L Carbon Dioxide 39 H (22-30) mmol/L BUN 35 H (7-17) mg/dL Creatinine 1.20 H (0.52-1.04) mg/dL Glucose 102 H (74-99) mg/dL Assessment and Plan Assessment: Shortness of breath secondary to acute on chronic CHF systolic dysfunction, EF 30-35%. Acute pulmonary edema Cardiomyopathy, etiology unclear. Hypertensive urgency. Moderate to severe mitral regurgitation Coronary artery disease history of prior [place] with stent placement Morbid obesity with BMI 67.1. Plan: Continue on current medication regime ,monitoring and symptomatic treatment. Diuresing another 24 hours as per cardiology. Close monitoring of renal function. Discharge planning for tomorrow pending cardiology clearance. The impression and plan of care has been dictated as directed. : I performed a history and examination of this patient, discussed the same with the dictator. I agree with the dictator's note ,documented as a scribe. Any additional findings or plans will be noted.
[2020-06-12] MEDS: ATORVASTATIN 80 MG TAB PO SCH (19:30)
[2020-06-13] MEDS: HYDROcodone/APAP 10-325MG 1 EACH TAB PO PRN ×4 (01:21→21:30)
[2020-06-13] MEDS: NITROGLYCERIN OINT 1 INCH/GM PACKET TOPICAL SCH (03:35)
[2020-06-13] MEDS: LEVOTHYROXINE 100 MCG TAB PO SCH (05:35)
[2020-06-13] MEDS: IPRATROPIUM-ALBUTEROL 3 ML NEB INHALATION SCH ×4 (08:17→19:21)
[2020-06-13 08:25] LABS: Potassium 4.1 mmol/L (3.5-5.1)
[2020-06-13 08:26] LABS: Calcium 9.1 mg/dL (8.4-10.2)
[2020-06-13] MEDS: METOPROLOL TARTRATE 25 MG TAB PO SCH ×2 (08:42→20:29)
[2020-06-13] MEDS: amLODIPine 10 MG TAB PO SCH (08:42)
[2020-06-13] MEDS: lisinopriL 20 MG TAB PO SCH ×2 (08:42→20:29)
[2020-06-13] MEDS: ASPIRIN 81 MG PO SCH (08:42)
[2020-06-13] MEDS: SPIRONOLACTONE 25 MG TAB PO SCH (08:42)
[2020-06-13] MEDS: PARoxetine 20 MG TAB PO SCH (08:42)
[2020-06-13] MEDS: CLOPIDOGREL 75 MG TAB PO SCH (08:42)
[2020-06-13] MEDS: buPROPion XL 150 MG TAB.ER.24H PO SCH (08:42)
[2020-06-13] MEDS: MULTIVITAMINS, THERA 1 EACH TAB PO SCH (08:42)
[2020-06-13] MEDS: ENOXAPARIN 40 MG/0.4 ML SYRINGE SQ SCH (08:43)
[2020-06-13] MEDS: FUROSEMIDE 10 MG/ML 4 ML VIAL IV SCH (08:44)
[2020-06-13] MEDS ORDERED: ASPIRIN 325 MG TAB PO STA (09:03)
[2020-06-13] MEDS ORDERED: ATORVASTATIN 80 MG TAB PO STA (09:03)
[2020-06-13] MEDS ORDERED: NITROGLYCERIN SL TABS 0.4 MG TAB SUBLINGUAL PRN (09:03)
[2020-06-13] MEDS ORDERED: ALPRAZolam 0.5 MG TAB PO PRN (09:03)
[2020-06-13] MEDS ORDERED: SODIUM CHLORIDE 0.9% 1,000 ML in EMPTY BAG 1 BAG IV ONE (09:03)
[2020-06-13] MEDS ORDERED: ALPRAZolam 0.25 MG TAB PO PRN (09:03)
[2020-06-13] MEDS ORDERED: IV FLUID CONTINUATION 1,000 ML IV ONE (11:45)
[2020-06-13] MEDS ORDERED: LIDOCAINE 1% INJ 10MG/ML (20 ML MDV) SQ ONE (11:45)
[2020-06-13] MEDS ORDERED: diphenhydrAMINE 50 MG/ML 1 ML VIAL IVP ONE (11:45)
[2020-06-13] MEDS ORDERED: MIDAZOLAM 2 MG/2 ML VIAL IVP ONE (11:45)
[2020-06-13] MEDS: VERAPAMIL SYRINGE (5 MG/10 ML) INTRAARTER ONE ×2 (11:46→11:58)
[2020-06-13] MEDS ORDERED: IOPAMIDOL-370 125ML BTL INJ ONE (11:57)
[2020-06-13] MEDS ORDERED: RX INFO: IV CONTRAST WAS GIVEN 1 EACH MISC MISCELLANE PRN (12:05)
[2020-06-13] MEDS ORDERED: SODIUM CHLORIDE 0.9% 1,000 ML IV SCH (12:15)
--- NOTE | 2020-06-13 12:30 | CC ---
CARDIAC CATHETERIZATION REPORT DATE OF SERVICE: June 13, 2020 PERFORMING PHYSICIAN: Aric Simon MD. PROCEDURE PERFORMED: 1. Selective right and left coronary angiogram. 2. Left heart catheterization. INDICATION: This is a 60-year-old female patient who was admitted to the hospital with heart failure and she underwent an echocardiogram and that revealed cardiomyopathy with EF between 25% to 30%. She is known to have coronary artery disease and prior stenting of the diagonal branch of the LAD in [address] Mariel Carnes. APPROACH: Right radial artery. COMPLICATION: None. LEVEL OF SEDATION: Moderate with sedation length of 13 minutes. PROCEDURE DESCRIPTION: After obtaining an informed consent, the patient was brought to the cardiac industrial laborer. The right radial artery was cannulated using micropuncture technique, the micropuncture wire passed easily then I placed a 5-Korean sheath in the right radial artery. I did selective right and left coronary angiogram with JR4 and JL3.5 catheters. Left heart catheterization was performed using the JR4 catheter which crossed the aortic valve then I did pullback across the valve. The procedure was completed without any complication. SELECTIVE CORONARY ANGIOGRAM: 1. The right coronary artery is a large caliber vessel. It is a dominant vessel and appeared to be angiographically normal. It distally bifurcates into PDA and PLV branches, both appeared to be angiographically normal. 2. The left main is angiographically normal. It bifurcates into LCX and LAD. 3. The LCX is a large caliber vessel. It is a nondominant vessel. The LCX is angiographically normal. 4. The LAD is a large caliber vessel. The LAD is angiographically normal. Proximally, it gives rise into a large diagonal branch which is stented and the stents are patent. HEMODYNAMICS: The LVEDP was 32 mmHg without significant gradient across the aortic valve. CONCLUSION: 1. Patent stents in the first diagonal branch of the left anterior descending artery. 2. Elevated left ventricular end-diastolic pressure. POSTPROCEDURE MANAGEMENT: 1. Medical treatment. 2. Continue IV diuretics in view of the elevated LVEDP. 3. Follow up with the patient. MMODL / IJN: [id number] /
--- NOTE | 2020-06-13 14:53 | P.PN ---
Subjective Progress Note Date: 06/13/20 This is a 60-year-old female admitted with acute on chronic CHF, acute pulmonary edema, hypertensive urgency and multiple other medical issues. Diuresing well on Lasix IV push with significant clinical improvement. Creatinine 0.89. Denies chest pain, palpitations. Maintaining O2 sats in the high 90s on 2 L nasal cannula. Hypertensive this morning, Norvasc dose increased. 06/11/2020 Diuresing well on Lasix IV push with 24-hour I&O reflecting a negative fluid balance. Renal function mildly worsening, BUN 30, creatinine 1.11. Blood pressure remains well controlled. Echo reported moderately severe impaired LV function, EF 30-35%, moderate to severe mitral regurgitation. Denies chest pain, palpitations. Maintaining O2 sats in the 90s on 2 L nasal cannula. 06/12/2020 continue on Lasix IV push, with decreased bodyweight. Creatinine up to 1.2. Aldactone added to med regimen. Denies chest pain, palpitations or shortness of breath. Maintaining O2 sats in the 90s on 2 L nasal cannula O2. 06/13/2020 nasal cannula further weaned down to 2 L nasal cannula maintaining O2 sats in the 90s. transitioned to oral diuretics. Scheduled for cardiac catheterization today. Denies chest pain, palpitations or shortness of breath. Creatinine 1.13. Objective - Vital Signs Vital signs: Vital Signs Temp 98.2 F 06/13/20 08:10 Pulse 74 06/13/20 08:25 Resp 18 06/13/20 08:10 BP 150/84 06/13/20 08:10 Pulse Ox 94 L 06/13/20 08:10 Intake & Output 06/12/20 06/13/20 06/13/20 18:59 06:59 18:59 Intake Total 960 240 180 Output Total 500 1000 0 Balance 460 -760 180 Weight 164.7 kg Intake: Oral 960 240 180 Output: Urine 500 1000 0 Stool 0 Other: Voiding Method Toilet Toilet # Voids 1 0 # Bowel Movements 0 - Exam PHYSICAL EXAMINATION: GENERAL: Alert and oriented 3, sitting up in bed, no acute distress. HEENT: Normocephalic. Neck is supple. Pupils reactive. Neck: Supple, no JVD. CHEST EXAMINATION:Symmetrical expansion.Nonlabored respiratory effort. No rhonchi, no crackles. No wheezing, CARDIAC: Normal S1, S2 with no gallops. Systolic murmur. ABDOMEN: Soft, nondistended, nontender. Bowel sounds normal. No organomegaly. Extremities: Decreasing edema, Venous stasis changes. Homer wrapped. No clubbing or cyanosis. Neurologically: CN II through XII grossly intact, well-coordinated movements. No focal deficits noted Skin: No rash, warm and dry - Labs CBC & Chem 7: 06/11/20 08:13 06/13/20 07:30 Labs: Abnormal Lab Results - Last 24 Hours (Table) 06/13/20 Range/Units 07:30 Carbon Dioxide 36 H (22-30) mmol/L BUN 39 H (7-17) mg/dL Creatinine 1.13 H (0.52-1.04) mg/dL Glucose 131 H (74-99) mg/dL Assessment and Plan Assessment: Shortness of breath secondary to acute on chronic CHF systolic dysfunction, EF 30-35%. Acute pulmonary edema Cardiomyopathy, etiology unclear. Hypertensive urgency. Moderate to severe mitral regurgitation Coronary artery disease history of prior [place] with stent placement Morbid obesity with BMI 67.1. Plan: Continue on current medication regime ,monitoring and symptomatic kya tment. Diuretics converted to oral, scheduled for cardiac catheterization today. Discharge planning for tomorrow pending cardiology clearance. The impression and plan of care has been dictated as directed. : I performed a history and examination of this patient, discussed the same with the dictator. I agree with the dictator's note ,documented as a scribe. Any additional findings or plans will be noted.
[2020-06-13] MEDS: SILVER sulfADIAZINE Cream 400 GM 1 APPLIC APPLIC TOPICAL SCH (17:16)
[2020-06-13] MEDS: ATORVASTATIN 80 MG TAB PO SCH (20:29)
[2020-06-14] MEDS: LEVOTHYROXINE 100 MCG TAB PO SCH (06:03)
[2020-06-14] MEDS: HYDROcodone/APAP 10-325MG 1 EACH TAB PO PRN ×2 (06:03→13:10)
[2020-06-14] MEDS ORDERED: HEPARIN SODIUM,PORCINE 10,000 UNIT in SODIUM CHLORIDE 0.9% 1,000 ML IRRIGATION PRN (07:00)
[2020-06-14] MEDS ORDERED: HEPARIN SODIUM,PORCINE 2,500 UNIT in SODIUM CHLORIDE 0.9% 250 ML IRRIGATION PRN (07:00)
[2020-06-14] MEDS: IPRATROPIUM-ALBUTEROL 3 ML NEB INHALATION SCH ×3 (07:16→15:12)
[2020-06-14 08:13] LABS: Calcium 8.8 mg/dL (8.4-10.2)
[2020-06-14 08:15] LABS: Potassium 4.8 mmol/L (3.5-5.1)
[2020-06-14] MEDS: ENOXAPARIN 40 MG/0.4 ML SYRINGE SQ SCH (08:48)
[2020-06-14] MEDS: ASPIRIN 81 MG PO SCH (08:48)
[2020-06-14] MEDS: MULTIVITAMINS, THERA 1 EACH TAB PO SCH (08:48)
[2020-06-14] MEDS: amLODIPine 10 MG TAB PO SCH (08:49)
[2020-06-14] MEDS: CLOPIDOGREL 75 MG TAB PO SCH (08:49)
[2020-06-14] MEDS: METOPROLOL TARTRATE 25 MG TAB PO SCH (08:49)
[2020-06-14] MEDS: SPIRONOLACTONE 25 MG TAB PO SCH (08:49)
[2020-06-14] MEDS: lisinopriL 20 MG TAB PO SCH (08:49)
[2020-06-14] MEDS: buPROPion XL 150 MG TAB.ER.24H PO SCH (08:49)
[2020-06-14] MEDS: SILVER sulfADIAZINE Cream 400 GM 1 APPLIC APPLIC TOPICAL SCH (08:49)
[2020-06-14] MEDS: PARoxetine 20 MG TAB PO SCH (08:49)
[2020-06-14] MEDS ORDERED: diphenhydrAMINE 2% CREAM 28.4 GM TUBE TOPICAL SCH (09:00)
[2020-06-14] MEDS ORDERED: FUROSEMIDE 40 MG TAB PO SCH (09:00)
[2020-06-14 09:17] VITALS: PULSE 66
--- NOTE | 2020-06-14 11:51 | P.PN ---
Subjective Progress Note Date: 06/14/20 Principal diagnosis: Heart failure with reduced ejection fraction exacerbation/cardiomyopathy of unknown etiology This is a pleasant 60-year-old female patient with coronary artery disease as well as hypertension and obesity who was admitted to the hospital with increasing shortness of breath and she was diagnosed with pulmonary edema. The patient subsequently was started on Lasix. She underwent an echocardiogram which revealed cardiomyopathy was EF around 35%. She was seen this morning. She is feeling better femoral shortness of breath. No symptoms of chest pain or chest discomfort. She is currently on Lasix by mouth. She is stable hemodynamically. From a cardiovascular standpoint of view, the patient can be discharged home. Objective - Vital Signs Vital signs: Vital Signs Temp 98.3 F 06/14/20 08:00 Pulse 66 06/14/20 08:00 Resp 22 06/14/20 10:20 BP 147/75 06/14/20 08:00 Pulse Ox 82 L 06/14/20 10:20 Intake & Output 06/13/20 06/14/20 06/14/20 18:59 06:59 18:59 Intake Total 620 540 600 Output Total 150 0 Balance 470 540 600 Weight 164.3 kg Intake: IV 20 Oral 600 540 600 Output: Urine 150 Stool 0 0 Other: Voiding Method Toilet Toilet # Voids 0 1 # Bowel Movements 0 - Constitutional General appearance: Present: no acute distress - Respiratory Respiratory: bilateral: diminished - Cardiovascular Rhythm: regular Heart sounds: normal: S1, S2 - Labs CBC & Chem 7: 06/11/20 08:13 06/14/20 07:08 Labs: Abnormal Lab Results - Last 24 Hours (Table) 06/14/20 Range/Units 07:08 Chloride 97 L (98-107) mmol/L Carbon Dioxide 36 H (22-30) mmol/L BUN 39 H (7-17) mg/dL Glucose 108 H (74-99) mg/dL Assessment and Plan Assessment: Assessment #1 heart failure with reduced ejection fraction exacerbation #2 cardiomyopathy of unknown etiology #3 coronary artery disease #4 hypertension #5 obesity Plan #1 continue the current medical regimen #2 the patient can be discharged home
[2020-06-14 12:08] VITALS: BMI 64.1
[2020-06-14 13:19] VITALS: BP 159/89; RESP 20; TEMP 98.6
--- NOTE | 2020-06-14 14:08 | P.DS ---
Providers Date of admission: 06/09/20 00:44 Expected date of discharge: 06/14/20 Attending physician: Jhoan Alcocer Consults: 06/09/20 00:38 Consult Physician Urgent Consulting Provider: Aric Simon Consult Reason/Comments: CHF Do you want consulting provider notified?: Yes 06/11/20 14:09 Consult Physician Routine Consulting Provider: Aric Simon Consult Reason/Comments: EF 30-35%, mod to severe MR Do you want consulting provider notified?: Yes Primary care physician: Jhoan Alcocer Hospital Course: Final Diagnoses: Shortness of breath secondary to acute on chronic CHF systolic dysfunction, EF 30-35%. Status post cardiac cath reporting patent stents in the first diagonal branch of LAD, elevated left ventricular end-diastolic pressure. Maximizing medical therapy. Acute pulmonary edema Cardiomyopathy, etiology unclear. Hypertensive urgency. Moderate to severe mitral regurgitation Coronary artery disease history of prior UT with stent placement Morbid obesity with BMI 67.1. Hospital course:This is a 60-year-old female admitted with acute on chronic CHF, acute pulmonary edema, hypertensive urgency and multiple other medical issues. Diuresing well on Lasix IV push with significant clinical improvement. Creatinine 0.89. Denies chest pain, palpitations. Maintaining O2 sats in the high 90s on 2 L nasal cannula. Hypertensive this morning, Norvasc dose increased. 06/11/2020 Diuresing well on Lasix IV push with 24-hour I&O reflecting a negative fluid balance. Renal function mildly worsening, BUN 30, creatinine 1.11. Blood pressure remains well controlled. Echo reported moderately severe impaired LV function, EF 30-35%, moderate to severe mitral regurgitation. Denies chest pain, palpitations. Maintaining O2 sats in the 90s on 2 L nasal cannula. 06/12/2020 continue on Lasix IV push, with decreased bodyweight. Creatinine up to 1.2. Aldactone added to med regimen. Denies chest pain, palpitations or shortness of breath. Maintaining O2 sats in the 90s on 2 L nasal cannula O2. 06/13/2020 nasal cannula further weaned down to 2 L nasal cannula maintaining O2 sats in the 90s. transitioned to oral diuretics. Scheduled for cardiac ca theterization today. Denies chest pain, palpitations or shortness of breath. Creatinine 1.13. Status post cardiac catheterization reporting patent stents in the first diagonal branch of the LAD, elevated left ventricular end-diastolic pressure. Cardiology recommending maximizing medical treatment and continuing diuretics. Patient will be discharged home today pending final DC recommendations and clearance from cardiology. The impression and plan of care has been dictated as directed. : I performed a history and examination of this patient, discussed the same with the dictator. I agree with the dictator's note ,documented as a scribe. Any additional findings or plans will be noted. Patient Condition at Discharge: Stable Plan - Discharge Summary Discharge Rx Participant: No New Discharge Prescriptions: New Spironolactone [Aldactone] 25 mg PO DAILY #30 tab Metoprolol Tartrate [Lopressor] 75 mg PO BID #180 tab amLODIPine [Norvasc] 10 mg PO DAILY #30 tab diphenhydrAMINE & Zinc Cream [Benadryl Cream] 1 applic TOPICAL BID applic Furosemide [Lasix] 40 mg PO DAILY #30 tab Continue PARoxetine HCL [Paxil] 40 mg PO DAILY Atorvastatin Calcium [Lipitor] 80 mg PO HS Clopidogrel Bisulfate [Plavix] 75 mg PO DAILY Levothyroxine Sodium [Synthroid] 200 mcg PO DAILY Hydrocodone/Acetaminophen [Hydrocodone-Acetamin 10-325 mg] 1 tab PO QID PRN PRN Reason: Pain rOPINIRole HCL [Requip] 1 mg PO HS lisinopriL [Zestril] 20 mg PO BID #60 tab buPROPion XL [Wellbutrin XL] 150 mg PO DAILY Multivitamins, Thera [Multivitamin (formulary)] 1 tab PO DAILY Aspirin EC [Ecotrin Low Dose] 81 mg PO DAILY Silver Sulfadiazine [SSD 1% Cream] 1 applic TOPICAL DAILY Discontinued Metoprolol Tartrate [Lopressor] 50 mg PO BID Furosemide [Lasix] 20 mg PO DAILY amLODIPine [Norvasc] 5 mg PO DAILY #30 tab Discharge Medication List Atorvastatin Calcium [Lipitor] 80 mg PO HS 10/16/13 [History] Clopidogrel Bisulfate [Plavix] 75 mg PO DAILY 10/16/13 [History] PARoxetine HCL [Paxil] 40 mg PO DAILY 10/16/13 [History] Hydrocodone/Acetaminophen [Hydrocodone-Acetamin 10-325 mg] 1 tab PO QID PRN 09/09/15 [History] Levothyroxine Sodium [Synthroid] 200 mcg PO DAILY 09/09/15 [History] rOPINIRole HCL [Requip] 1 mg PO HS 09/09/15 [History] lisinopriL [Zestril] 20 mg PO BID #60 tab 02/23/17 [Rx] Aspirin EC [Ecotrin Low Dose] 81 mg PO DAILY 06/09/20 [History] Multivitamins, Thera [Multivitamin (formulary)] 1 tab PO DAILY 06/09/20 [History] Silver Sulfadiazine [SSD 1% Cream] 1 applic TOPICAL DAILY 06/09/20 [History] buPROPion XL [Wellbutrin XL] 150 mg PO DAILY 06/09/20 [History] Metoprolol Tartrate [Lopressor] 75 mg PO BID #180 tab 06/13/20 [Rx] Spironolactone [Aldactone] 25 mg PO DAILY #30 tab 06/13/20 [Rx] amLODIPine [Norvasc] 10 mg PO DAILY #30 tab 06/13/20 [Rx] Furosemide [Lasix] 40 mg PO DAILY #30 tab 06/14/20 [Rx] diphenhydrAMINE & Zinc Cream [Benadryl Cream] 1 applic TOPICAL BID applic 06/14/20 [Rx] Follow up Appointment(s)/Referral(s): Aric Simon MD [STAFF PHYSICIAN] - 2 Weeks Jhoan Alcocer DO [Primary Care Provider] - 3 Days Aleisha Flor [NON-STAFF] - Ambulatory/Diagnostic Orders: Complete Blood Count w/diff [LAB.AMB] Time Frame: 3 Days, Location: None Selected Activity/Diet/Wound Care/Special Instructions: Patient requires home oxygen at discharge secondary to hypoxia from CHF Patient requires nebulizer at discharge secondary to COPD Pending final DC recommendations, clearance from cardiology. Confirm cardiology follow-up appointment prior to discharge.
== END 2020-06-14 17:05 | disposition home or self-care (01) | DRG 287 ==
LOC: EC 22:47 → 3SCARD 06-09 00:44
PROVIDERS: ADMIT Family Medicine; ATTEND Family Medicine
PROC: B2111ZZ Fluoroscopy of Multiple Coronary Arteries using Low Osmolar Contrast (ICD-10-PCS; 2020-06-13)
PROC: 4A023N7 Measurement of Cardiac Sampling and Pressure, Left Heart, Percutaneous Approach (ICD-10-PCS; principal; 2020-06-13 08:20)
DX: I11.0 Hypertensive heart disease with heart failure (principal); Z68.44 Body mass index [BMI] 60.0-69.9, adult; I42.9 Cardiomyopathy, unspecified; E66.01 Morbid (severe) obesity due to excess calories; Z20.822 Contact with and (suspected) exposure to COVID-19; J44.9 Chronic obstructive pulmonary disease, unspecified; I50.23 Acute on chronic systolic (congestive) heart failure; I16.0 Hypertensive urgency; I25.10 Atherosclerotic heart disease of native coronary artery without angina pectoris; E78.5 Hyperlipidemia, unspecified; G43.909 Migraine, unspecified, not intractable, without status migrainosus; E89.0 Postprocedural hypothyroidism; I49.1 Atrial premature depolarization; I34.0 Nonrheumatic mitral (valve) insufficiency; M71.20 Synovial cyst of popliteal space [Baker], unspecified knee; I25.2 Old myocardial infarction; Z71.3 Dietary counseling and surveillance; Z79.82 Long term (current) use of aspirin; Z79.899 Other long term (current) drug therapy; Z79.02 Long term (current) use of antithrombotics/antiplatelets; Z79.890 Hormone replacement therapy; Z87.19 Personal history of other diseases of the digestive system; Z87.442 Personal history of urinary calculi; Z90.49 Acquired absence of other specified parts of digestive tract; Z87.891 Personal history of nicotine dependence; Z95.5 Presence of coronary angioplasty implant and graft; Z90.721 Acquired absence of ovaries, unilateral; Z98.84 Bariatric surgery status; Z98.890 Other specified postprocedural states; Z88.8 Allergy status to other drugs, medicaments and biological substances; Z91.041 Radiographic dye allergy status; Z82.49 Family history of ischemic heart disease and other diseases of the circulatory system; Z82.0 Family history of epilepsy and other diseases of the nervous system
CPT/HCPCS: 36415; 71045; 80048; 80053; 80061; 83605; 83735; 83880; 84484; 85025; 85027; 85610; 85730; 87635; 93005; 93306; 93458; 94640; 94760; 96374; 96375; 99285

== ENCOUNTER 2021-11-02 15:04 | Observation (INO) | payer MEDICARE ==
--- NOTE | 2021-11-02 16:38 | ED ---
General Adult HPI - General Chief complaint: Skin/Abscess/Foreign Body Stated complaint: Side and leg pain Time Seen by Provider: 11/02/21 16:37 Source: patient Mode of arrival: wheelchair Limitations: no limitations - History of Present Illness Initial comments: Patient presents to the ED for evaluation with her son at bedside. Patient states that her home recently became infested with bed bugs, and she states that she has been forced to sleep sitting up in a chair at her kitchen table. Patient states that she has been sweating a lot due to this sleeping position in her kitchen, and she states that she has developed pain and redness under her sk in "folds" along her left flank, umbilical and groin regions. Patient also states that she has had increased redness, edematous swelling and drainage along her bilateral lower legs. Patient denies fever or chills, headache, focal numbness/weakness/neuro deficit, chest pain or pressure, dyspnea, cough or cold symptoms, palpitations, dizziness, abdominal pain, nausea/vomiting/diarrhea, dysuria or urinary symptoms, decreased urine output, or any other symptoms or complaints. - Related Data Home Medications Medication Instructions Recorded Confirmed Atorvastatin Calcium [Lipitor] 80 mg PO HS 10/16/13 06/09/20 Clopidogrel Bisulfate [Plavix] 75 mg PO DAILY 10/16/13 06/09/20 PARoxetine HCL [Paxil] 40 mg PO DAILY 10/16/13 06/09/20 Hydrocodone/Acetaminophen 1 tab PO QID PRN 09/09/15 06/09/20 [Hydrocodone-Acetamin 10-325 mg] Levothyroxine Sodium [Synthroid] 200 mcg PO DAILY 09/09/15 06/09/20 rOPINIRole HCL [Requip] 1 mg PO HS 09/09/15 06/09/20 Aspirin EC [Ecotrin Low Dose] 81 mg PO DAILY 06/09/20 06/09/20 Multivitamins, Thera [Multivitamin 1 tab PO DAILY 06/09/20 06/09/20 (formulary)] Silver Sulfadiazine [SSD 1% Cream] 1 applic TOPICAL DAILY 06/09/20 06/09/20 buPROPion XL [Wellbutrin XL] 150 mg PO DAILY 06/09/20 06/09/20 Previous Rx's Medication Instructions Recorded lisinopriL [Zestril] 20 mg PO BID #60 tab 02/23/17 Metoprolol Tartrate [Lopressor] 75 mg PO BID #180 tab 06/13/20 Spironolactone [Aldactone] 25 mg PO DAILY #30 tab 06/13/20 amLODIPine [Norvasc] 10 mg PO DAILY #30 tab 06/13/20 Furosemide [Lasix] 40 mg PO DAILY #30 tab 06/14/20 diphenhydrAMINE & Zinc Cream 1 applic TOPICAL BID applic 06/14/20 [Benadryl Cream] Allergies Allergy/AdvReac Type Severity Reaction Status Date / Time Iodinated Contrast Media Allergy Severe Anaphylaxis Verified 11/02/21 19:45 [Iodinated Contrast Media - IV Dye] ketorolac tromethamine Allergy Severe Anaphylaxis Verified 11/02/21 19:45 [From Toradol] methylprednisolone sodium Allergy Severe Anaphylaxis Verified 11/02/21 19:45 succinate [From Solu-Medrol] heparin AdvReac Rash/Hives Verified 11/02/21 19:45 Review of Systems ROS Statement: Those systems with pertinent positive or pertinent negative responses have been documented in the HPI. ROS Other: All systems not noted in ROS Statement are negative. Past Medical History Past Medical History: Heart Failure, Hypertension, Myocardial Infarction ([place]) Additional Past Medical History / Comment(s): hx anemia, diverticulitis, colostomy, migraines, hypoglycemia, hx kidney stone, edwards cyst behind rt knee Last Myocardial Infarction Date:: 04/14/13 History of Any Multi-Drug Resistant Organisms: None Reported Past Surgical History: Bariatric Surgery, Bowel Resection, Section, Cholecystectomy, Heart Catheterization With Stent, Orthopedic Surgery Additional Past Surgical History / Comment(s): thyroidectomy,rt oopherectomy, left knee arthroscopic, bariatric sleeve, carmela heel spurs, lab band Past Anesthesia/Blood Transfusion Reactions: Postoperative Nausea & Vomiting (PONV) Additional Past Anesthesia/Blood Transfusion Reaction / Comment(s): Pt has received blood in past without reaction. Date of Last Stent Placement:: 2012 Past Psychological History: No Psychological Hx Reported Smoking Status: Former smoker Past Alcohol Use History: None Reported Past Drug Use History: None Reported - Past Family History Father Family Medical History: Myocardial Infarction ([place]) Additional Family Medical History / Comment(s): Father of a [place] at the age of 64 yrs. Mother Family Medical History: Musculoskeletal Disorder, Neurologic Disorder Additional Family Medical History / Comment(s): Mother of MS at the age of 64 yrs. General Exam Limitations: no limitations General appearance: alert, in no apparent distress Head exam: Present: atraumatic, normocephalic Eye exam: Present: normal appearance, EOMI ENT exam: Present: mucous membranes moist Neck exam: Present: other (Trachea is in midline) Respiratory exam: Present: normal lung sounds bilaterally. Absent: respiratory distress, wheezes, rales, rhonchi, stridor Cardiovascular Exam: Present: regular rate, normal rhythm, normal heart sounds, other (Normal radial pulses bilaterally) GI/Abdominal exam: Present: soft, other (Patient is morbidly obese). Absent: tenderness, guarding Extremities exam: Present: other (2+ bilateral lower leg pitting edema; bilateral lower leg venous stasis dermatitis; blanching erythema and tenderness is noted to bilateral lower legs consistent with cellulitis; no crepitation or fluctuance is appreciated; negative Homans sign bilaterally). Absent: calf tenderness Neurological exam: Present: alert, oriented X3. Absent: motor sensory deficit Psychiatric exam: Present: normal affect, normal mood Skin exam: Present: warm, dry, other (Moist erythematous skin changes with associated tenderness is noted to intertriginous regions along the left flank, groin and umbilicus-> consistent with fungal intertrigo) Course Vital Signs 11/02/21 15:06 Temperature 98.5 F Pulse Rate 96 Respiratory 16 Rate Blood Pressure 191/87 O2 Sat by Pulse 95 Oximetry - Reevaluation(s) Reevaluation #1: 11/02/21 20:08 Case, H&P, test results and ED management were discussed with Dr. Pacheco. She accepts hospital admission. She recommends infectious disease consultation. She has no further recommendations at this time. 11/02/21 20:12 Patient is aware of her test results, and she agrees with hospital admission at this time. Patient denies development of any new symptoms while in the ED. EKG Findings - EKG Comments: EKG Findings:: Normal sinus rhythm, occasional premature supraventricular complexes, ventricular rate of 97 bpm, normal RI and QRS intervals, normal QT interval, normal axis, nonspecific ST and T-wave abnormality Medical Decision Making - Medical Decision Making Given the patient's morbid obesity and significant intertrigo and lower extremity cellulitis, will admit the patient to the hospital for topical antifungal treatment, as well as IV antibiotics. Dr. Pacheco has accepted hospital admission. - Lab Data Result diagrams: 11/02/21 18:20 11/02/21 18:20 Lab Results 11/02/21 11/02/21 11/02/21 Range/Units 18:20 18:20 18:20 WBC 7.3 (3.8-10.6) k/uL RBC 4.06 (3.80-5.40) m/uL Hgb 11.1 L (11.4-16.0) gm/dL Hct 36.6 (34.0-46.0) % MCV 90.1 (80.0-100.0) fL MCH 27.3 (25.0-35.0) pg MCHC 30.3 L (31.0-37.0) g/dL RDW 15.4 (11.5-15.5) % Plt Count 182 (150-450) k/uL MPV 8.4 Neutrophils % 84 % Lymphocytes % 7 % Monocytes % 4 % Eosinophils % 3 % Basophils % 1 % Neutrophils # 6.1 (1.3-7.7) k/uL Lymphocytes # 0.5 L (1.0-4.8) k/uL Monocytes # 0.3 (0-1.0) k/uL Eosinophils # 0.3 (0-0.7) k/uL Basophils # 0.0 (0-0.2) k/uL Hypochromasia Marked PT (9.0-12.0) sec INR (<1.2) APTT (22.0-30.0) sec Sodium 139 (137-145) mmol/L Potassium 5.1 (3.5-5.1) mmol/L Chloride 108 H (98-107) mmol/L Carbon Dioxide 23 (22-30) mmol/L Anion Gap 8 mmol/L BUN 37 H (7-17) mg/dL Creatinine 1.30 H (0.52-1.04) mg/dL Est GFR (CKD-EPI)AfAm 51 (>60 ml/min/1.73 sqM) Est GFR (CKD-EPI)NonAf 44 (>60 ml/min/1.73 sqM) Glucose 102 H (74-99) mg/dL Plasma Lactic Acid Jamison 0.9 (0.7-2.0) mmol/L Calcium 8.3 L (8.4-10.2) mg/dL Total Bilirubin 0.5 (0.2-1.3) mg/dL AST 37 H (14-36) U/L ALT 14 (4-34) U/L Alkaline Phosphatase 96 (38-126) U/L Troponin I (0.000-0.034) ng/mL NT-Pro-B Natriuret Pep pg/mL Total Protein 7.1 (6.3-8.2) g/dL Albumin 3.8 (3.5-5.0) g/dL 11/02/21 11/02/21 11/02/21 Range/Units 18:20 18:20 18:20 WBC (3.8-10.6) k/uL RBC (3.80-5.40) m/uL Hgb (11.4-16.0) gm/dL Hct (34.0-46.0) % MCV (80.0-100.0) fL MCH (25.0-35.0) pg MCHC (31.0-37.0) g/dL RDW (11.5-15.5) % Plt Count (150-450) k/uL MPV Neutrophils % % Lymphocytes % % Monocytes % % Eosinophils % % Basophils % % Neutrophils # (1.3-7.7) k/uL Lymphocytes # (1.0-4.8) k/uL Monocytes # (0-1.0) k/uL Eosinophils # (0-0.7) k/uL Basophils # (0-0.2) k/uL Hypochromasia PT 10.2 (9.0-12.0) sec INR 0.9 (<1.2) APTT 23.6 (22.0-30.0) sec Sodium (137-145) mmol/L Potassium (3.5-5.1) mmol/L Chloride (98-107) mmol/L Carbon Dioxide (22-30) mmol/L Anion Gap mmol/L BUN (7-17) mg/dL Creatinine (0.52-1.04) mg/dL Est GFR (CKD-EPI)AfAm (>60 ml/min/1.73 sqM) Est GFR (CKD-EPI)NonAf (>60 ml/min/1.73 sqM) Glucose (74-99) mg/dL Plasma Lactic Acid Jamison (0.7-2.0) mmol/L Calcium (8.4-10.2) mg/dL Total Bilirubin (0.2-1.3) mg/dL AST (14-36) U/L ALT (4-34) U/L Alkaline Phosphatase (38-126) U/L Troponin I 0.014 (0.000-0.034) ng/mL NT-Pro-B Natriuret Pep 1400 pg/mL Total Protein (6.3-8.2) g/dL Albumin (3.5-5.0) g/dL - Radiology Data Chest x-ray: Normal chest. There is clearing of the pulmonary edema compared to old exam. Disposition Clinical Impression: Lower extremity edema, Lower extremity cellulitis, Intertrigo Disposition: ADMITTED IP TO THIS HOSP Condition: Stable Is patient prescribed a controlled substance at d/c from ED?: No Referrals: Jhoan Alcocer DO [Primary Care Provider] - 1-2 days Time of Disposition: 20:13
[2021-11-02] MEDS ORDERED: PIPERACILLIN-TAZOBACTAM 3.375 GM in SODIUM CHLORIDE 0.9% 100 ML IVPB STA (16:54)
--- NOTE | 2021-11-02 17:40 | XR ---
EXAMINATION TYPE: XR chest 1V portable DATE OF EXAM: 11/02/2021 COMPARISON: 06/08/2020 HISTORY: Short of breath TECHNIQUE: Annual view FINDINGS: There is no heart failure nor confluent pneumonic infiltrate. Heart and mediastinum are nor mal. There is no pleural effusion. Bony thorax is intact IMPRESSION: Normal chest. There is clearing of the pulmonary edema compared to old exam.
[2021-11-02 18:44] LABS: Basophils % (A) 1 %; Eosinophils # (A) 0.3 k/uL (0-0.7); Eosinophils % (A) 3 %; HCT 36.6 % (34.0-46.0); HGB 11.1 gm/dL (11.4-16.0); Hypochromasia Marked; Lymphocytes # (A) 0.5 k/uL (1.0-4.8); Lymphocytes % (A) 7 %; MCH 27.3 pg (25.0-35.0); MCHC 30.3 g/dL (31.0-37.0); MCV 90.1 fL (80.0-100.0); Mean Platelet Volume 8.4; Monocytes # (A) 0.3 k/uL (0-1.0); Monocytes % (A) 4 %; Neutrophils # (A) 6.1 k/uL (1.3-7.7); Neutrophils % (A) 84 %; Platelet Count 182 k/uL (150-450); RBC 4.06 m/uL (3.80-5.40); RDW 15.4 % (11.5-15.5); WBC 7.3 k/uL (3.8-10.6)
[2021-11-02 18:54] LABS: INR 0.9 (<1.2); Partial Thromboplastin Time 23.6 sec (22.0-30.0); Prothrombin Time 10.2 sec (9.0-12.0)
[2021-11-02 18:59] LABS: Albumin 3.8 g/dL (3.5-5.0); Calcium 8.3 mg/dL (8.4-10.2); Total Bilirubin 0.5 mg/dL (0.2-1.3); Total Protein 7.1 g/dL (6.3-8.2)
[2021-11-02 19:16] LABS: Potassium 5.1 mmol/L (3.5-5.1)
[2021-11-02] MEDS ORDERED: SODIUM CHLORIDE 0.9% 500 ML 500 ML IV ONE (19:46)
[2021-11-02] MEDS ORDERED: NALOXONE 0.4 MG/ML 1 ML VIAL IV PRN (20:14)
[2021-11-02] MEDS: NYSTATIN 100,000 UNIT/GM OINT 30 GM TUBE TOPICAL SCH (23:00)
[2021-11-03] MEDS: HYDROcodone/APAP 10-325MG 1 EACH TAB PO PRN ×4 (03:46→21:59)
[2021-11-03] MEDS: LEVOTHYROXINE 100 MCG TAB PO SCH (05:59)
[2021-11-03] MEDS: buPROPion XL 150 MG TAB.ER.24H PO SCH (08:11)
[2021-11-03] MEDS: ASPIRIN 81 MG PO SCH (08:11)
[2021-11-03] MEDS: amLODIPine 10 MG TAB PO SCH (08:11)
[2021-11-03] MEDS: METOPROLOL TARTRATE 25 MG TAB PO SCH ×2 (08:12→21:53)
[2021-11-03] MEDS: NYSTATIN 100,000 UNIT/GM OINT 30 GM TUBE TOPICAL SCH ×3 (08:12→21:54)
[2021-11-03] MEDS: lisinopriL 20 MG TAB PO SCH ×2 (08:12→21:53)
[2021-11-03] MEDS: PARoxetine 20 MG TAB PO SCH (08:12)
[2021-11-03] MEDS: SPIRONOLACTONE 25 MG TAB PO SCH (08:12)
[2021-11-03] MEDS: MULTIVITAMINS, THERA 1 EACH TAB PO SCH (08:12)
[2021-11-03] MEDS: CLOPIDOGREL 75 MG TAB PO SCH (08:12)
[2021-11-03] MEDS: FUROSEMIDE 40 MG TAB PO SCH (08:12)
[2021-11-03] MEDS ORDERED: PIPERACILLIN-TAZOBACTAM 3.375 GM in SODIUM CHLORIDE 0.9% 100 ML IVPB SCH (08:45)
[2021-11-03 09:22] LABS: Basophils # (A) 0.02 X 10*3/uL (0.00-0.10); Basophils % (A) 0.4 %; Eosinophils # (A) 0.17 X 10*3/uL (0.04-0.35); Eosinophils % (A) 3.2 %; HCT 32.7 % (37.2-46.3); HGB 9.3 g/dL (12.0-15.0); Immature Grans, Automated 0.4 %; Lymphocytes # (A) 0.54 X 10*3/uL (0.90-5.00); MCH 25.9 pg (27.0-32.0); MCHC 28.4 g/dL (32.0-37.0); MCV 91.1 fL (80.0-97.0); Mean Platelet Volume 11.6 fL (9.5-12.2); Monocytes # (A) 0.44 X 10*3/uL (0.20-1.00); Monocytes % (A) 8.2 %; NRBC Per 100 WBC 0 /100 WBCS (0.0-0.0); Neutrophils % (A) 77.8 %; Platelet Count 162 X 10*3/uL (140-440); RBC 3.59 X 10*6/uL (4.10-5.20); RDW 15.3 % (11.5-14.5); WBC 5.39 X 10*3/uL (4.50-10.00)
[2021-11-03 09:31] LABS: African American GFR (CKD) 59.1 (60.0-200.0); Albumin 3.3 g/dL (3.8-4.9); Albumin/Globulin Ratio 1.24 (1.60-3.17); Anion Gap 12.8 mmol/L (10.00-18.00); BUN/Creat Ratio 23.65 Ratio (12.00-20.00); Blood Urea Nitrogen 27.2 mg/dL (9.0-27.0); Calcium 8.1 mg/dL (8.7-10.3); Carbon Dioxide 19.7 mmol/L (20.0-27.5); Globulin 2.6 g/dL (1.6-3.3); Potassium 4.6 mmol/L (3.5-5.5); Total Bilirubin 0.2 mg/dL (0.30-1.20); Total Protein 5.9 g/dL (6.2-8.2)
[2021-11-03] MEDS: PANTOPRAZOLE 40 MG/10 ML VIAL IVP SCH (12:08)
[2021-11-03] MEDS: NYSTATIN 100,000 UNIT/GM POWD 15 GM TOPICAL SCH ×3 (12:08→21:55)
[2021-11-03] MEDS: LEVOTHYROXINE 25 MCG TAB PO SCH (12:10)
--- NOTE | 2021-11-03 12:46 | P.HPIM ---
History of Present Illness H&P Date: 11/03/21 Chief Complaint: Lower extremity cellulitis This is a 61-year-old female with past medical history of morbid obesity, CAD with stent placement 2, CHF, prior nicotine dependence and multiple other medical issues presented to the ER with complaints of lower extremity celluliti s, severe inflammation of skin folds of his flanks, and umbilical and groin areas and reports that her home is infested with bedbugs. Also reports she does not have a bed and has been sitting up in a chair sleeping, significant sweating which she attributes to her sleeping position. Denies chest pain, palpitations or shortness of breath. Denies lightheadedness dizziness or focal deficits. Denies nausea vomiting or diarrhea. Afebrile, normal WBC. Hemoglobin 9.3, platelets 162, sodium 141, potassium 4.6, bicarb 19.7, BUN 27.2, creatinine 1.2 (renal function improving), lactic acid 0.9, proBNP 1400, albumin 3.3. Review of Systems ROS Statement: Those systems with pertinent positive or pertinent negative responses have been documented in the HPI. ROS Other: All systems not noted in ROS Statement are negative. Past Medical History Past Medical History: Heart Failure, Hypertension, Myocardial Infarction ([place]) Additional Past Medical History / Comment(s): hx anemia, diverticulitis, migraines, hypoglycemia, hx kidney stone, edwards cyst behind rt knee Last Myocardial Infarction Date:: 04/14/13 History of Any Multi-Drug Resistant Organisms: None Reported Past Surgical History: Bariatric Surgery, Bowel Resection, Section, Cholecystectomy, Heart Catheterization With Stent, Orthopedic Surgery Additional Past Surgical History / Comment(s): thyroidectomy,rt oopherectomy, left knee arthroscopic, bariatric sleeve, carmela heel spurs, lab band Past Anesthesia/Blood Transfusion Reactions: Postoperative Nausea & Vomiting (PO NV) Additional Past Anesthesia/Blood Transfusion Reaction / Comment(s): Pt has received blood in past without reaction. Date of Last Stent Placement:: 2012 Past Psychological History: No Psychological Hx Reported Additional Psychological History / Comment(s): As of 11/03/2021: Patient lives with disabled and her brother. She drives. Uses a cane. Is open with [employer] on aging. Has oxygen at home. Concentrator and portable tanks. Supplied by [employer]. 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 Has been out twice, will return 3 more times. Smoking Status: Former smoker Past Alcohol Use History: None Reported Additional Past Alcohol Use History / Comment(s): Pt started smoking in 1978 and quit in 2002. Past Drug Use History: None Reported - Past Family History Father Family Medical History: Myocardial Infarction ([place]) Additional Family Medical History / Comment(s): Father of a [place] at the age of 64 yrs. Mother Family Medical History: Musculoskeletal Disorder, Neurologic Disorder Additional Family Medical History / Comment(s): Mother of MS at the age of 64 yrs. Medications and Allergies Home Medications Medication Instructions Recorded Confirmed Type Atorvastatin Calcium [Lipitor] 80 mg PO HS 10/16/13 11/02/21 History Clopidogrel Bisulfate [Plavix] 75 mg PO DAILY 10/16/13 11/02/21 History PARoxetine HCL [Paxil] 40 mg PO DAILY 10/16/13 11/02/21 History Hydrocodone/Acetaminophen 1 tab PO QID PRN 09/09/15 11/02/21 History [Hydrocodone-Acetamin 10-325 mg] Levothyroxine Sodium [Synthroid] 200 mcg PO DAILY 09/09/15 11/02/21 History rOPINIRole HCL [Requip] 1 mg PO HS 09/09/15 11/02/21 History lisinopriL [Zestril] 20 mg PO BID #60 tab 02/23/17 11/02/21 Rx Aspirin EC [Ecotrin Low Dose] 81 mg PO DAILY 06/09/20 11/02/21 History Multivitamins, Thera [Multivitamin 1 tab PO DAILY 06/09/20 11/02/21 History (formulary)] buPROPion XL [Wellbutrin XL] 150 mg PO DAILY 06/09/20 11/02/21 History Metoprolol Tartrate [Lopressor] 75 mg PO BID #180 tab 06/13/20 11/02/21 Rx Spironolactone [Aldactone] 25 mg PO DAILY #30 tab 06/13/20 11/02/21 Rx amLODIPine [Norvasc] 10 mg PO DAILY #30 tab 06/13/20 11/02/21 Rx Furosemide [Lasix] 40 mg PO DAILY #30 tab 06/14/20 11/02/21 Rx Levothyroxine Sodium [Levoxyl] 25 mcg PO DAILY 11/03/21 11/03/21 History Allergies Allergy/AdvReac Type Severity Reaction Status Date / Time Iodinated Contrast Media Allergy Severe Anaphylaxis Verified 11/02/21 19:45 [Iodinated Contrast Media - IV Dye] ketorolac tromethamine Allergy Severe Anaphylaxis Verified 11/02/21 19:45 [From Toradol] methylprednisolone sodium Allergy Severe Anaphylaxis Verified 11/02/21 19:45 succinate [From Solu-Medrol] heparin AdvReac Rash/Hives Verified 11/02/21 19:45 Physical Exam Vitals: Vital Signs Temp Pulse Pulse Resp BP BP BP 11/03/21 07:10 98.9 F 108 H 18 178/95 11/03/21 00:11 98.2 F 98 18 151/71 11/02/21 21:00 97.0 F L 97 18 160/86 11/02/21 15:06 98.5 F 96 16 191/87 Pulse Ox 11/03/21 07:10 96 11/03/21 00:11 95 11/02/21 21:00 95 11/02/21 15:06 95 Intake and Output 11/02/21 11/03/21 11/03/21 22:59 06:59 14:59 Intake Total 0 240 Balance 0 240 Intake: Intake, IV Titration 0 Amount Sodium Chloride 0.9% 500 0 ml 500 ml @ 999 mls/hr IV .Q31M ONE Rx#:[id number] Oral 240 Other: Weight 172.365 kg 172.365 kg PHYSICAL EXAMINATION: GENERAL: Pleasant, morbidly obese female sitting up in bed comfortably, no acute distress, awake alert and oriented. HEENT: Normocephalic. Neck is supple. Pupils reactive. Oral cavity is moist. Neck reveals no JVD, carotid bruits, or thyromegaly. CHEST EXAMINATION: Trachea is central. Symmetrical expansion. No wheezing nonlabored breathing.. CARDIAC: Normal S1, S2 with no gallops. No murmurs ABDOMEN: Soft. Bowel sounds normal. No organomegaly. No abdominal bruits. Extremities: Bilateral pedal edema. Venous stasis changes. Cellulitis bilateral lower extremities,reddened,blistered. No clubbing or cyanosis. Neurological: Cranial nerves II through XII grossly intact, No focal deficits noted Skin: Skin folds flank, umbilical and groin excoriated, significant intertrigo Psychiatric: Alert and oriented 3, Mood and affect normal. Results CBC & Chem 7: 11/03/21 04:19 11/03/21 04:19 Labs: Abnormal Lab Results - Last 24 Hours (Table) 11/02/21 11/02/21 11/03/21 Range/Units 18:20 18:20 04:19 RBC 3.59 L (4.10-5.20) X 10*6/uL Hgb 11.1 L 9.3 L (11.4-16.0) gm/dL Hct 32.7 L (37.2-46.3) % MCH 25.9 L (27.0-32.0) pg MCHC 30.3 L 28.4 L (31.0-37.0) g/dL RDW 15.3 H (11.5-14.5) % Lymphocytes # 0.5 L 0.54 L (1.0-4.8) k/uL Chloride 108 H (98-107) mmol/L Carbon Dioxide (20.0-27.5) mmol/L BUN 37 H (7-17) mg/dL Creatinine 1.30 H (0.52-1.04) mg/dL Est GFR (CKD-EPI)AfAm (60.0-200.0) Est GFR (CKD-EPI)NonAf (60.0-200.0) BUN/Creatinine Ratio (12.00-20.00) Ratio Glucose 102 H (74-99) mg/dL Calcium 8.3 L (8.4-10.2) mg/dL Total Bilirubin (0.30-1.20) mg/dL AST 37 H (14-36) U/L Total Protein (6.2-8.2) g/dL Albumin (3.8-4.9) g/dL Albumin/Globulin Ratio (1.60-3.17) g/dL 11/03/21 Range/Units 04:19 RBC (4.10-5.20) X 10*6/uL Hgb (11.4-16.0) gm/dL Hct (37.2-46.3) % MCH (27.0-32.0) pg MCHC (31.0-37.0) g/dL RDW (11.5-14.5) % Lymphocytes # (1.0-4.8) k/uL Chloride (98-107) mmol/L Carbon Dioxide 19.7 L (20.0-27.5) mmol/L BUN 27.2 H (7-17) mg/dL Creatinine (0.52-1.04) mg/dL Est GFR (CKD-EPI)AfAm 59.1 L (60.0-200.0) Est GFR (CKD-EPI)NonAf 51.0 L (60.0-200.0) BUN/Creatinine Ratio 23.65 H (12.00-20.00) Ratio Glucose (74-99) mg/dL Calcium 8.1 L (8.4-10.2) mg/dL Total Bilirubin 0.20 L (0.30-1.20) mg/dL AST (14-36) U/L Total Protein 5.9 L (6.2-8.2) g/dL Albumin 3.3 L (3.8-4.9) g/dL Albumin/Globulin Ratio 1.24 L (1.60-3.17) g/dL Thrombosis Risk Factor Assmnt - Choose All That Apply Any of the Below Risk Factors Present?: Yes Each Factor Represents 1 point: Obesity (BMI >25), Swollen legs (current) Other Risk Factors: Yes Each Risk Factor Represents 2 Points: Age 61-74 years Thrombosis Risk Factor Assessment Total Risk Factor Score: 4 Thrombosis Risk Factor Assessment Level: Moderate Risk Assessment and Plan Assessment: Lower extremity cellulitis, significant Fungal Intertrigo of folds and umbilical area. Home infested with bedbugs per patient Hypertension, uncontrolled on admission Coronary artery disease history of prior AL with stent placement Cardiomyopathy, etiology unclear Chronic CHF, systolic dysfunction, EF 30-35% Moderate to severe mitral regurgitation Morbid obesity, BMI 67.3 Plan: Continue on current medication regime ,monitoring and symptomatic zeb atment. IV antifungals and Zosyn ordered, ID consulted. PT/OT/ Social work consulted, regarding living environment, possible subacute rehab. Nystatin cream and powder to folds. Silvadene/Homer wrap's to lower extremities. Bureau Chief consulted for nail care. The impression and plan of care has been dictated as directed. : I performed a history and examination of this patient, discussed the same with the dictator. I agree with the dictator's note ,documented as a scribe. Any additional findings or plans will be noted.
[2021-11-03] MEDS: AMPICILLIN-SULBACTAM 3 GM in SODIUM CHLORIDE 0.9% 100 ML IVPB SCH (15:58)
[2021-11-03] MEDS: SILVER sulfADIAZINE Cream 400 GM 1 APPLIC APPLIC TOPICAL SCH (15:59)
[2021-11-03] MEDS: ATORVASTATIN 80 MG TAB PO SCH (21:57)
--- NOTE | 2021-11-03 23:43 | P.CONS ---
History of Present Illness - Reason for Consult Consult date: 11/03/21 Lower extremity cellulitis Requesting physician: Hong Prado - Chief Complaint Breast fold and bilateral groin pain and redness x days - History of Present Illness Patient is a 61-year-old morbidly obese female presenting to the ER yesterday afternoon for evaluation of erythematous rash to the bilateral groin and breast for area and this patient symptom has been going on for couple of days to a week patient complaining of some sharp pain to the rash area intensity is almost 7-8 out of 10 and no radiation patient currently do not have any open wound or any drainage has been complaining of some chills but no fever, on arrival to the ER the patient was afebrile and no fever have been recorded subsequently patient did have normal white count BUN/creatinine has been mildly elevated liver exams are normal patient did have a chest x-ray normal chest patient was admitted to hospital has been diagnosed with abdominal fold as well as breast for area cellulitis patient was started on vancomycin and Zosyn infectious disease was consulted for further management of antibiotic therapy Review of Systems Positive point has been mentioned in the HPI rest of the systems are negative Past Medical History Past Medical History: Heart Failure, Hypertension, Myocardial Infarction ([place]) Additional Past Medical History / Comment(s): hx anemia, diverticulitis, migraines, hypoglycemia, hx kidney stone, edwards cyst behind rt knee Last Myocardial Infarction Date:: 04/14/13 History of Any Multi-Drug Resistant Organisms: None Reported Past Surgical History: Bariatric Surgery, Bowel Resection, Section, Cholecystectomy, Heart Catheterization With Stent, Orthopedic Surgery Additional Past Surgical History / Comment(s): thyroidectomy,rt oopherectomy, left knee arthroscopic, bariatric sleeve, carmela heel spurs, lab band Past Anesthesia/Blood Transfusion Reactions: Postoperative Nausea & Vomiting (PONV) Additional Past Anesthesia/Blood Transfusion Reaction / Comm: Pt has received blood in past without reaction. Date of Last Stent Placement:: 2012 Past Psychological History: No Psychological Hx Reported Additional Psychological History / Comment(s): As of 11/03/2021: Patient lives with disabled and her brother. She drives. Uses a cane. Is open with [employer] on aging. Has oxygen at home. Concentrator and portable tanks. Supplied by [employer]. 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 Has been out twice, will return 3 more times. Smoking Status: Former smoker Past Alcohol Use History: None Reported Additional Past Alcohol Use History / Comment(s): Pt started smoking in 1978 and quit in 2002. Past Drug Use History: None Reported - Past Family History Father Family Medical History: Myocardial Infarction ([place]) Additional Family Medical History / Comment(s): Father of a [place] at the age of 64 yrs. Mother Family Medical History: Musculoskeletal Disorder, Neurologic Disorder Additional Family Medical History / Comment(s): Mother of MS at the age of 64 yrs. Medications and Allergies Home Medications Medication Instructions Recorded Confirmed Type Atorvastatin Calcium [Lipitor] 80 mg PO HS 10/16/13 11/02/21 History Clopidogrel Bisulfate [Plavix] 75 mg PO DAILY 10/16/13 11/02/21 History PARoxetine HCL [Paxil] 40 mg PO DAILY 10/16/13 11/02/21 History Hydrocodone/Acetaminophen 1 tab PO QID PRN 09/09/15 11/02/21 History [Hydrocodone-Acetamin 10-325 mg] Levothyroxine Sodium [Synthroid] 200 mcg PO DAILY 09/09/15 11/02/21 History rOPINIRole HCL [Requip] 1 mg PO HS 09/09/15 11/02/21 History lisinopriL [Zestril] 20 mg PO BID #60 tab 02/23/17 11/02/21 Rx Aspirin EC [Ecotrin Low Dose] 81 mg PO DAILY 06/09/20 11/02/21 History Multivitamins, Thera [Multivitamin 1 tab PO DAILY 06/09/20 11/02/21 History (formulary)] buPROPion XL [Wellbutrin XL] 150 mg PO DAILY 06/09/20 11/02/21 History Metoprolol Tartrate [Lopressor] 75 mg PO BID #180 tab 06/13/20 11/02/21 Rx Spironolactone [Aldactone] 25 mg PO DAILY #30 tab 06/13/20 11/02/21 Rx amLODIPine [Norvasc] 10 mg PO DAILY #30 tab 06/13/20 11/02/21 Rx Furosemide [Lasix] 40 mg PO DAILY #30 tab 06/14/20 11/02/21 Rx Levothyroxine Sodium [Levoxyl] 25 mcg PO DAILY 11/03/21 11/03/21 History Albuterol Inhaler [Ventolin Hfa 2 puff INHALATION RT-QID PRN #8 gm 11/05/21 Rx Inhaler] Lactobacillus Acidoph & Bulgar 1 each PO TID packet 11/05/21 Rx [Lactinex] Nystatin 100,000 Unit/gm Powd 1 applic TOPICAL TID each 11/05/21 Rx [Mycostatin Powder] Amoxic-Pot Clav 875-125Mg 1 tab PO Q12HR 10 Days #20 tab 11/07/21 Rx [Augmentin 875-125] Ipratropium-Albuterol Nebulize 3 ml INHALATION QID #120 packet 11/07/21 Rx [Duoneb 0.5 mg-3 mg/3 ml Soln] Allergies Allergy/AdvReac Type Severity Reaction Status Date / Time Iodinated Contrast Media Allergy Severe Anaphylaxis Verified 11/02/21 19:45 [Iodinated Contrast Media - IV Dye] ketorolac tromethamine Allergy Severe Anaphylaxis Verified 11/02/21 19:45 [From Toradol] methylprednisolone sodium Allergy Severe Anaphylaxis Verified 11/02/21 19:45 succinate [From Solu-Medrol] heparin AdvReac Rash/Hives Verified 11/02/21 19:45 Physical Exam Vitals: Vital Signs Temp Pulse Pulse Resp BP BP BP 11/03/21 07:10 98.9 F 108 H 18 178/95 11/03/21 00:11 98.2 F 98 18 151/71 11/02/21 21:00 97.0 F L 97 18 160/86 11/02/21 15:06 98.5 F 96 16 191/87 Pulse Ox 11/03/21 07:10 96 11/03/21 00:11 95 11/02/21 21:00 95 11/02/21 15:06 95 Intake and Output 11/02/21 11/03/21 11/03/21 22:59 06:59 14:59 Intake Total 0 240 Balance 0 240 Intake: Intake, IV Titration 0 Amount Sodium Chloride 0.9% 500 0 ml 500 ml @ 999 mls/hr IV .Q31M ONE Rx#:[id number] Oral 240 Other: Weight 172.365 kg 172.365 kg GENERAL DESCRIPTION: Middle-aged female lying in bed, no distress. No tachypnea or accessory muscle of respiration use. HEENT: Shows Pallor , no scleral icterus. Oral mucous membrane is dry. No p haryngeal erythema or thrush NECK: Trachea central, no thyromegaly. LUNGS: Unlabored breathing. Clear to auscultation anteriorly. No wheeze or crackle. HEART: S1, S2, regular rate and rhythm. No loud murmur ABDOMEN: Soft, no tenderness , guarding or rigidity, no organomegaly EXTREMITIES: No edema of feet. SKIN: Patient did have extensive swelling or redness to abdominal fold as well as breast fold area no drainage. NEUROLOGICAL: The patient is awake, alert, oriented x3, mood and affect normal. Results CBC & Chem 7: 11/05/21 05:09 11/05/21 05:09 Labs: Abnormal Lab Results - Last 24 Hours (Table) 11/02/21 11/02/21 11/03/21 Range/Units 18:20 18:20 04:19 RBC 3.59 L (4.10-5.20) X 10*6/uL Hgb 11.1 L 9.3 L (11.4-16.0) gm/dL Hct 32.7 L (37.2-46.3) % MCH 25.9 L (27.0-32.0) pg MCHC 30.3 L 28.4 L (31.0-37.0) g/dL RDW 15.3 H (11.5-14.5) % Lymphocytes # 0.5 L 0.54 L (1.0-4.8) k/uL Chloride 108 H (98-107) mmol/L Carbon Dioxide (20.0-27.5) mmol/L BUN 37 H (7-17) mg/dL Creatinine 1.30 H (0.52-1.04) mg/dL Est GFR (CKD-EPI)AfAm (60.0-200.0) Est GFR (CKD-EPI)NonAf (60.0-200.0) BUN/Creatinine Ratio (12.00-20.00) Ratio Glucose 102 H (74-99) mg/dL Calcium 8.3 L (8.4-10.2) mg/dL Total Bilirubin (0.30-1.20) mg/dL AST 37 H (14-36) U/L Total Protein (6.2-8.2) g/dL Albumin (3.8-4.9) g/dL Albumin/Globulin Ratio (1.60-3.17) g/dL 11/03/21 Range/Units 04:19 RBC (4.10-5.20) X 10*6/uL Hgb (11.4-16.0) gm/dL Hct (37.2-46.3) % MCH (27.0-32.0) pg MCHC (31.0-37.0) g/dL RDW (11.5-14.5) % Lymphocytes # (1.0-4.8) k/uL Chloride (98-107) mmol/L Carbon Dioxide 19.7 L (20.0-27.5) mmol/L BUN 27.2 H (7-17) mg/dL Creatinine (0.52-1.04) mg/dL Est GFR (CKD-EPI)AfAm 59.1 L (60.0-200.0) Est GFR (CKD-EPI)NonAf 51.0 L (60.0-200.0) BUN/Creatinine Ratio 23.65 H (12.00-20.00) Ratio Glucose (74-99) mg/dL Calcium 8.1 L (8.4-10.2) mg/dL Total Bilirubin 0.20 L (0.30-1.20) mg/dL AST (14-36) U/L Total Protein 5.9 L (6.2-8.2) g/dL Albumin 3.3 L (3.8-4.9) g/dL Albumin/Globulin Ratio 1.24 L (1.60-3.17) g/dL Assessment and Plan (1) Abdominal wall cellulitis Current Visit: Yes Status: Acute Code(s): L03.311 - CELLULITIS OF ABDOMINAL WALL SNOMED Code(s): 85123972 (2) Intertrigo Current Visit: Yes Status: Acute Code(s): L30.4 - ERYTHEMA INTERTRIGO SNOMED Code(s): 93036527 Plan: 1patient with extensive abdominal fold as well as breast fold cutaneous candidiasis with secondary cellulitis likely from gram-positive skin bob less likely gram-negative infection. 2Marked area of the redness. 3discontinue vancomycin and Zosyn to decrease risk of nephrotoxicity. 4start the patient on Unasyn 3 g every 6 hours. 5nystatin powder to the breast for as well as groin fold area. We will follow on clinical condition and cultures to further adjust medication if needed Thank you for this consultation will follow this patient along with you Time with Patient: Greater than 30
[2021-11-04] MEDS: AMPICILLIN-SULBACTAM 3 GM in SODIUM CHLORIDE 0.9% 100 ML IVPB SCH ×3 (00:19→15:58)
[2021-11-04] MEDS: HYDROcodone/APAP 10-325MG 1 EACH TAB PO PRN ×3 (04:19→19:50)
[2021-11-04] MEDS: LEVOTHYROXINE 25 MCG TAB PO SCH (06:11)
[2021-11-04] MEDS: LEVOTHYROXINE 100 MCG TAB PO SCH (06:11)
[2021-11-04] MEDS: NYSTATIN 100,000 UNIT/GM OINT 30 GM TUBE TOPICAL SCH ×2 (06:52→06:53)
[2021-11-04] MEDS: amLODIPine 10 MG TAB PO SCH (08:06)
[2021-11-04] MEDS: ASPIRIN 81 MG PO SCH (08:06)
[2021-11-04] MEDS: lisinopriL 20 MG TAB PO SCH ×2 (08:07→19:49)
[2021-11-04] MEDS: buPROPion XL 150 MG TAB.ER.24H PO SCH (08:07)
[2021-11-04] MEDS: PANTOPRAZOLE 40 MG/10 ML VIAL IVP SCH (08:07)
[2021-11-04] MEDS: CLOPIDOGREL 75 MG TAB PO SCH (08:07)
[2021-11-04] MEDS: NYSTATIN 100,000 UNIT/GM POWD 15 GM TOPICAL SCH ×3 (08:07→19:51)
[2021-11-04] MEDS: METOPROLOL TARTRATE 25 MG TAB PO SCH ×2 (08:07→19:50)
[2021-11-04] MEDS: FUROSEMIDE 40 MG TAB PO SCH (08:07)
[2021-11-04] MEDS: MULTIVITAMINS, THERA 1 EACH TAB PO SCH (08:07)
[2021-11-04] MEDS: PARoxetine 20 MG TAB PO SCH (08:08)
[2021-11-04] MEDS: SPIRONOLACTONE 25 MG TAB PO SCH (08:08)
[2021-11-04] MEDS: SILVER sulfADIAZINE Cream 400 GM 1 APPLIC APPLIC TOPICAL SCH (08:08)
[2021-11-04 09:25] LABS: Basophils # (A) 0.02 X 10*3/uL (0.00-0.10); Basophils % (A) 0.3 %; Eosinophils # (A) 0.22 X 10*3/uL (0.04-0.35); Eosinophils % (A) 3.8 %; HCT 32.6 % (37.2-46.3); HGB 9.1 g/dL (12.0-15.0); Immature Grans, Automated 0.3 %; Lymphocytes # (A) 0.49 X 10*3/uL (0.90-5.00); Lymphocytes % (A) 8.4 %; MCH 25.8 pg (27.0-32.0); MCHC 27.9 g/dL (32.0-37.0); MCV 92.4 fL (80.0-97.0); Mean Platelet Volume 11.7 fL (9.5-12.2); Monocytes # (A) 0.36 X 10*3/uL (0.20-1.00); Monocytes % (A) 6.2 %; NRBC Per 100 WBC 0 /100 WBCS (0.0-0.0); Neutrophils # (A) 4.71 X 10*3/uL (1.80-7.70); Platelet Count 164 X 10*3/uL (140-440); RBC 3.53 X 10*6/uL (4.10-5.20); RDW 15.4 % (11.5-14.5); WBC 5.82 X 10*3/uL (4.50-10.00)
[2021-11-04 09:33] LABS: African American GFR (CKD) 65.2 (60.0-200.0); BUN/Creat Ratio 21.7 Ratio (12.00-20.00); Calcium 8.4 mg/dL (8.7-10.3); Carbon Dioxide 22.2 mmol/L (20.0-27.5); Non-African American GFR(CKD) 56.2 (60.0-200.0); Potassium 4.6 mmol/L (3.5-5.5)
[2021-11-04] MEDS: MAG HYDROX/AL HYDROX/SIMETH 30 ML, LIDOCAINE VISCOUS 2% 30 ML, diphenhydrAMINE ELIXIR 7... PO SCH ×12 (10:16→19:49)
[2021-11-04] MEDS: LACTOBACILLUS ACIDOPH & BULGAR 1 EACH PACKET PO SCH ×3 (10:16→19:49)
--- NOTE | 2021-11-04 17:41 | P.PN ---
Subjective Progress Note Date: 11/04/21 H&P Date: 11/03/21 Chief Complaint: Lower extremity cellulitis This is a 61-year-old female with past medical history of morbid obesity, CAD with stent placement 2, CHF, prior nicotine dependence and multiple other medical issues presented to the ER with complaints of lower extremity cellulitis, severe inflammation of skin folds of his flanks, and umbilical and groin areas and reports that her home is infested with bedbugs. Also reports she does not have a bed and has been sitting up in a chair sleeping, significant sweating which she attributes to her sleeping position. Denies chest pain, palpitations or shortness of breath. Denies lightheadedness dizziness or focal deficits. Denies nausea vomiting or diarrhea. Afebrile, normal WBC. Hemog lobin 9.3, platelets 162, sodium 141, potassium 4.6, bicarb 19.7, BUN 27.2, creatinine 1.2 (renal function improving), lactic acid 0.9, proBNP 1400, albumin 3.3. 11/04/2021 evaluated by infectious disease, antibiotics adjusted to Unasyn. Continues on nystatin powder with significant clinical improvement. Complains of canker sore under her tongue. She reports she has been ambulating in room, to BR; tolerating exertion well. Denies chest pain, palpitations or shortness of breath. Afebrile, normal WBC. Preliminary blood cultures no growth after 24 hours. Renal function improving. Objective - Vital Signs Vital signs: Vital Signs Temp 98 F 11/04/21 14:11 Pulse 59 L 11/04/21 14:11 Resp 20 11/04/21 14:11 BP 132/77 11/04/21 14:11 Pulse Ox 89 L 11/04/21 14:11 FiO2 Intake & Output 11/03/21 11/04/21 11/04/21 18:59 06:59 18:59 Intake Total 358 250 Balance 358 250 Intake: IV 100 Ampicillin-Sulbactam 3 gm 100 In Sodium Chloride 0.9% 100 ml @ 200 mls/hr IVPB Q8HR [facility] Rx#:[id number] Oral 358 150 Other: # Voids 2 1 1 # Bowel Movements 1 - Exam PHYSICAL EXAMINATION: GENERAL: Pleasant, morbidly obese female sitting up in bed comfortably, no acute distress, awake alert and oriented. HEENT: Normocephalic. Neck is supple. Pupils reactive. Oral cavity is moist. Neck : Supple,no JVD, CHEST EXAMINATION: Trachea is central. Symmetrical expansion. No wheezing nonlabored breathing.. CARDIAC: Normal S1, S2 with no gallops. No murmurs ABDOMEN: Soft, obese, Bowel sounds normal. No guarding. Extremities: Bilateral pedal edema. Venous stasis changes. Cellulitis bilateral lower extremities,reddened,blistered. No clubbing or cyanosis. Neurological: Cranial nerves II through XII grossly intact, No focal deficits noted Skin: Skin folds flank, umbilical and groin excoriation much improved, significant intertrigo/candidiasis Psychiatric: Alert and oriented 3, Mood and affect normal. - Labs CBC & Chem 7: 11/04/21 04:29 11/04/21 04:29 Labs: Abnormal Lab Results - Last 24 Hours (Table) 11/04/21 11/04/21 Range/Units 04:29 04:29 RBC 3.53 L (4.10-5.20) X 10*6/uL Hgb 9.1 L (12.0-15.0) g/dL Hct 32.6 L (37.2-46.3) % MCH 25.8 L (27.0-32.0) pg MCHC 27.9 L (32.0-37.0) g/dL RDW 15.4 H (11.5-14.5) % Lymphocytes # 0.49 L (0.90-5.00) X 10*3/uL Chloride 110 H (96-109) mmol/L Est GFR (CKD-EPI)NonAf 56.2 L (60.0-200.0) BUN/Creatinine Ratio 21.70 H (12.00-20.00) Ratio Calcium 8.4 L (8.7-10.3) mg/dL Microbiology - Last 24 Hours (Table) 11/02/21 18:32 Blood Culture - Preliminary Blood No Growth after 24 hours 11/02/21 18:20 Blood Culture - Preliminary Blood No Growth after 24 hours Assessment and Plan Assessment: Lower extremity cellulitis, significant Fungal Intertrigo, candidiasis of folds and umbilical area. Home infested with bedbugs per patient Hypertension, uncontrolled on admission Coronary artery disease history of prior [place] with stent placement Cardiomyopathy, etiology unclear Chronic CHF, systolic dysfunction, EF 30-35% Moderate to severe mitral regurgitation Morbid obesity, BMI 67.3 Plan: Continue on current medication regime ,monitoring and symptomatic treatment. Wound care/IV antibiotics as per ID. cools solution as well as Lactinex ordered regarding canker sore. The impression and plan of care has been dictated as directed. : I performed a history and examination of this patient, discussed the same with the dictator. I agree with the dictator's note ,documented as a scribe. Any additional findings or plans will be noted.
[2021-11-04] MEDS: ATORVASTATIN 80 MG TAB PO SCH (19:50)
[2021-11-04] MEDS: IPRATROPIUM-ALBUTEROL 3 ML NEB INHALATION PRN (19:59)
[2021-11-05] MEDS: AMPICILLIN-SULBACTAM 3 GM in SODIUM CHLORIDE 0.9% 100 ML IVPB SCH ×4 (01:04→23:31)
[2021-11-05] MEDS: HYDROcodone/APAP 10-325MG 1 EACH TAB PO PRN ×4 (02:26→22:26)
[2021-11-05] MEDS: LEVOTHYROXINE 25 MCG TAB PO SCH (05:31)
[2021-11-05] MEDS: LEVOTHYROXINE 100 MCG TAB PO SCH (05:31)
[2021-11-05] MEDS: IPRATROPIUM-ALBUTEROL 3 ML NEB INHALATION PRN ×3 (07:33→19:29)
[2021-11-05 08:57] LABS: Basophils # (A) 0.01 X 10*3/uL (0.00-0.10); Basophils % (A) 0.2 %; Eosinophils # (A) 0.18 X 10*3/uL (0.04-0.35); Eosinophils % (A) 3.6 %; HCT 31.9 % (37.2-46.3); HGB 9.1 g/dL (12.0-15.0); Immature Grans, Automated 0.2 %; Lymphocytes # (A) 0.52 X 10*3/uL (0.90-5.00); Lymphocytes % (A) 10.3 %; MCH 26.5 pg (27.0-32.0); MCHC 28.5 g/dL (32.0-37.0); Mean Platelet Volume 11.4 fL (9.5-12.2); Monocytes # (A) 0.35 X 10*3/uL (0.20-1.00); Monocytes % (A) 6.9 %; NRBC Per 100 WBC 0 /100 WBCS (0.0-0.0); Neutrophils % (A) 78.8 %; Platelet Count 143 X 10*3/uL (140-440); RBC 3.43 X 10*6/uL (4.10-5.20); RDW 15.2 % (11.5-14.5); WBC 5.07 X 10*3/uL (4.50-10.00)
[2021-11-05] MEDS: METOPROLOL TARTRATE 25 MG TAB PO SCH ×2 (09:15→19:49)
[2021-11-05] MEDS: FUROSEMIDE 40 MG TAB PO SCH (09:15)
[2021-11-05] MEDS: SPIRONOLACTONE 25 MG TAB PO SCH (09:15)
[2021-11-05] MEDS: CLOPIDOGREL 75 MG TAB PO SCH (09:16)
[2021-11-05] MEDS: MAG HYDROX/AL HYDROX/SIMETH 30 ML, LIDOCAINE VISCOUS 2% 30 ML, diphenhydrAMINE ELIXIR 7... PO SCH ×12 (09:16→19:52)
[2021-11-05] MEDS: lisinopriL 20 MG TAB PO SCH ×2 (09:16→19:49)
[2021-11-05] MEDS: PARoxetine 20 MG TAB PO SCH (09:16)
[2021-11-05] MEDS: ASPIRIN 81 MG PO SCH (09:16)
[2021-11-05] MEDS: amLODIPine 10 MG TAB PO SCH (09:16)
[2021-11-05] MEDS: MULTIVITAMINS, THERA 1 EACH TAB PO SCH (09:16)
[2021-11-05] MEDS: buPROPion XL 150 MG TAB.ER.24H PO SCH (09:16)
[2021-11-05 09:17] LABS: African American GFR (CKD) 69.9 (60.0-200.0); Anion Gap 9.4 mmol/L (10.00-18.00); BUN/Creat Ratio 20.2 Ratio (12.00-20.00); Blood Urea Nitrogen 20.2 mg/dL (9.0-27.0); Calcium 8.3 mg/dL (8.7-10.3); Carbon Dioxide 24.6 mmol/L (20.0-27.5); Non-African American GFR(CKD) 60.3 (60.0-200.0); Potassium 4.5 mmol/L (3.5-5.5)
[2021-11-05] MEDS: PANTOPRAZOLE 40 MG/10 ML VIAL IVP SCH (09:17)
[2021-11-05] MEDS: SILVER sulfADIAZINE Cream 400 GM 1 APPLIC APPLIC TOPICAL SCH (09:17)
[2021-11-05] MEDS: LACTOBACILLUS ACIDOPH & BULGAR 1 EACH PACKET PO SCH ×3 (09:17→19:51)
[2021-11-05] MEDS: NYSTATIN 100,000 UNIT/GM OINT 30 GM TUBE TOPICAL SCH ×3 (09:18→19:51)
[2021-11-05] MEDS: NYSTATIN 100,000 UNIT/GM POWD 15 GM TOPICAL SCH ×3 (09:18→19:51)
[2021-11-05] MEDS: ATORVASTATIN 80 MG TAB PO SCH (19:50)
--- NOTE | 2021-11-05 23:48 | P.PN ---
Subjective Progress Note Date: 11/04/21 Principal diagnosis: Breast fold and abdominal wall cellulitis Patient is a 61-year-old female morbidly obese [facility] with bilateral groin and breast fold swelling or redness concerning for cutaneous candidiasis secondary cellulitis. On today's evaluation that is 11/04/2021, patient denies having any fever or chills, the patient is a breathing comfortably on nasal cannula oxygen, denies having any chest pain or shortness of breath or cough abdominal for pain and redness has decreased and denies having any diarrhea Objective - Vital Signs Vital signs: Vital Signs Temp 98.2 F 11/04/21 07:38 Pulse 79 11/04/21 07:38 Resp 22 11/04/21 07:38 BP 145/70 11/04/21 07:38 Pulse Ox 97 11/04/21 07:38 FiO2 Intake & Output 11/03/21 11/04/21 11/04/21 18:59 06:59 18:59 Intake Total 358 250 Balance 358 250 Intake: IV 100 Ampicillin-Sulbactam 3 gm 100 In Sodium Chloride 0.9% 100 ml @ 200 mls/hr IVPB Q8HR [facility] Rx#:[id number] Oral 358 150 Other: # Voids 2 1 # Bowel Movements 1 - Exam GENERAL DESCRIPTION: A middle-age female lying in bed in no distress RESPIRATORY SYSTEM: Unlabored breathing , decreased breath sounds at bases HEART: S1 S2 regular rate and rhythm , ABDOMEN: Soft , no tenderness, abdominal fold swelling redness has decreased as well as breast fold swelling and redness EXTREMITIES: No edema feet - Labs CBC & Chem 7: 11/05/21 05:09 11/05/21 05:09 Labs: Abnormal Lab Results - Last 24 Hours (Table) 11/04/21 11/04/21 Range/Units 04:29 04:29 RBC 3.53 L (4.10-5.20) X 10*6/uL Hgb 9.1 L (12.0-15.0) g/dL Hct 32.6 L (37.2-46.3) % MCH 25.8 L (27.0-32.0) pg MCHC 27.9 L (32.0-37.0) g/dL RDW 15.4 H (11.5-14.5) % Lymphocytes # 0.49 L (0.90-5.00) X 10*3/uL Chloride 110 H (96-109) mmol/L Est GFR (CKD-EPI)NonAf 56.2 L (60.0-200.0) BUN/Creatinine Ratio 21.70 H (12.00-20.00) Ratio Calcium 8.4 L (8.7-10.3) mg/dL Microbiology - Last 24 Hours (Table) 11/02/21 18:32 Blood Culture - Preliminary Blood No Growth after 24 hours 11/02/21 18:20 Blood Culture - Preliminary Blood No Growth after 24 hours Assessment and Plan (1) Abdominal wall cellulitis Current Visit: Yes Status: Acute Code(s): L03.311 - CELLULITIS OF ABDOMINAL WALL SNOMED Code(s): 60474414 (2) Intertrigo Current Visit: Yes Status: Acute Code(s): L30.4 - ERYTHEMA INTERTRIGO SNOMED Code(s): 34396672 Plan: 1patient with extensive abdominal fold as well as breast fold cutaneous candidiasis with secondary cellulitis likely from gram-positive skin bob less likely gram-negative infection. 2Marked area of the redness. 3patient will continue with Unasyn 3 g every 6 hours. 4nystatin powder to the breast for as well as groin fold area. Time with Patient: Less than 30
--- NOTE | 2021-11-05 23:50 | P.PN ---
Subjective Progress Note Date: 11/05/21 Principal diagnosis: Breast fold and abdominal wall cellulitis Patient is a 61-year-old female morbidly obese [facility] with bilateral groin and breast fold swelling or redness concerning for cutaneous candidiasis secondary cellulitis. On today's evaluation that is 11/05/2021, patient remains to be afebrile, the patient is a breathing comfortably on nasal cannula oxygen, the patient denies having any chest pain or shortness of breath or cough, the patient abdominal fold pain and redness has decreased and the patient denies having any diarrhea Objective - Vital Signs Vital signs: Vital Signs Temp 98 F 11/05/21 07:00 Pulse 70 11/05/21 07:44 Resp 20 11/05/21 07:00 BP 176/85 11/05/21 07:00 Pulse Ox 97 11/05/21 07:00 FiO2 Intake & Output 11/04/21 11/05/21 11/05/21 18:59 06:59 18:59 Other: # Voids 1 2 1 - Exam GENERAL DESCRIPTION: A middle-age female lying in bed in no distress RESPIRATORY SYSTEM: Unlabored breathing , decreased breath sounds at bases HEART: S1 S2 regular rate and rhythm , ABDOMEN: Soft , no tenderness, abdominal fold swelling redness has decreased as well as breast fold swelling and redness EXTREMITIES: No edema feet - Labs CBC & Chem 7: 11/05/21 05:09 11/05/21 05:09 Labs: Abnormal Lab Results - Last 24 Hours (Table) 11/05/21 11/05/21 Range/Units 05:09 05:09 RBC 3.43 L (4.10-5.20) X 10*6/uL Hgb 9.1 L (12.0-15.0) g/dL Hct 31.9 L (37.2-46.3) % MCH 26.5 L (27.0-32.0) pg MCHC 28.5 L (32.0-37.0) g/dL RDW 15.2 H (11.5-14.5) % Lymphocytes # 0.52 L (0.90-5.00) X 10*3/uL Chloride 110 H (96-109) mmol/L Anion Gap 9.40 L (10.00-18.00) mmol/L BUN/Creatinine Ratio 20.20 H (12.00-20.00) Ratio Calcium 8.3 L (8.7-10.3) mg/dL Microbiology - Last 24 Hours (Table) 11/02/21 18:32 Blood Culture - Preliminary Blood No Growth after 48 hours 11/02/21 18:20 Blood Culture - Preliminary Blood No Growth after 48 hours Assessment and Plan (1) Abdominal wall cellulitis Current Visit: Yes Status: Acute Code(s): L03.311 - CELLULITIS OF ABDOMINAL WALL SNOMED Code(s): 07444257 (2) Intertrigo Current Visit: Yes Status: Acute Code(s): L30.4 - ERYTHEMA INTERTRIGO SNOMED Code(s): 48398755 Plan: 1patient with extensive abdominal fold as well as breast fold cutaneous candidiasis with secondary cellulitis likely from gram-positive skin bob less likely gram-negative infection. 2 patient seemed to have full clinical improvement both in the breast fold as well as abdominal wall cellulitis, patient will will continue with Unasyn 3 g every 6 hours along with nystatin powder to the breast for as well as groin fold area. Time with Patient: Less than 30
[2021-11-06] MEDS: HYDROcodone/APAP 10-325MG 1 EACH TAB PO PRN ×4 (04:43→21:10)
[2021-11-06] MEDS: LEVOTHYROXINE 100 MCG TAB PO SCH (05:25)
[2021-11-06] MEDS: AMPICILLIN-SULBACTAM 3 GM in SODIUM CHLORIDE 0.9% 100 ML IVPB SCH ×4 (05:25→23:24)
[2021-11-06] MEDS: LEVOTHYROXINE 25 MCG TAB PO SCH (05:28)
--- NOTE | 2021-11-06 08:55 | P.DS ---
Providers Date of admission: 11/02/21 20:14 Expected date of discharge: 11/05/21 Attending physician: Jhoan Alcocer Consults: 11/02/21 20:14 Consult Physician Urgent Consulting Provider: Destin Granado Consult Reason/Comments: Lower extremity cellulitis, intertrigo Do you want consulting provider notified?: Yes 11/03/21 11:19 Consult Physician Routine Consulting Provider: Jhaon Bill Consult Reason/Comments: Toe Nail Trimming Do you want consulting provider notified?: Yes Primary care physician: Jhoan Alcocer Hospital Course: Final Diagnoses: Lower extremity cellulitis, significant Fungal Intertrigo, candidiasis of folds and umbilical area. Home infested with bedbugs per patient Hypertension, uncontrolled on admission Coronary artery disease history of prior AK with stent placement Cardiomyopathy, etiology unclear Chronic CHF, systolic dysfunction, EF 30-35% Moderate to severe mitral regurgitation Morbid obesity, BMI 67.3 Hospital course:This is a 61-year-old female with past medical history of morbid obesity, CAD with stent placement 2, CHF, prior nicotine dependence and multiple other medical issues presented to the ER with complaints of lower extremity cellulitis, severe inflammation of skin folds of his flanks, and umbilical and groin areas and reports that her home is infested with bedbugs. Also reports she does not have a bed and has been sitting up in a chair sleeping, significant sweating which she attributes to her sleeping position. Denies chest pain, palpitations or shortness of breath. Denies lightheadedness dizziness or focal deficits. Denies nausea vomiting or diarrhea. Afebrile, normal WBC. Hemoglobin 9.3, platelets 162, sodium 141, potassium 4.6, bicarb 19.7, BUN 27.2, creatinine 1.2 (renal function improving), lactic acid 0.9, proBNP 1400, albumin 3.3. 11/04/2021 evaluated by infectious disease, antibiotics adjusted to Unasyn. Continues on nystatin powder with significant clinical improvement. Complains of canker sore under her tongue. She reports she has been ambulating in room, to BR; tolerating exertion well. Denies chest pain, palpitations or shortness of breath. Afebrile, normal WBC. Preliminary blood cultures no growth after 24 hours. Renal function improving. Maintained on IV antibiotics, nystatin powder, significant clinical improvement. Ambulating with in room, tolerating exertion well. Denies chest pain, palpitations or shortness of breath. Family has arranged for return visit with [facility]. Patient will be discharged home today in a stable condition with fair prognosis pending final DC recommendations and clearance per infectious disease. The impression and plan of care has been dictated as directed. : I performed a history and examination of this patient, discussed the same with the dictator. I agree with the dictator's note ,documented as a scribe. Any additional findings or plans will be noted. Patient Condition at Discharge: Stable Plan - Discharge Summary Discharge Rx Participant: No New Discharge Prescriptions: New Nystatin 100,000 Unit/gm Powd [Mycostatin Powder] 1 applic TOPICAL TID each Albuterol Inhaler [Ventolin Hfa Inhaler] 2 puff INHALATION RT-QID PRN #8 gm PRN Reason: Shortness Of Breath Lactobacillus Acidoph & Bulgar [Lactinex] 1 each PO TID packet Continue PARoxetine HCL [Paxil] 40 mg PO DAILY Atorvastatin Calcium [Lipitor] 80 mg PO HS Clopidogrel Bisulfate [Plavix] 75 mg PO DAILY Levothyroxine Sodium [Synthroid] 200 mcg PO DAILY Hydrocodone/Acetaminophen [Hydrocodone-Acetamin 10-325 mg] 1 tab PO QID PRN PRN Reason: Pain rOPINIRole HCL [Requip] 1 mg PO HS lisinopriL [Zestril] 20 mg PO BID #60 tab buPROPion XL [Wellbutrin XL] 150 mg PO DAILY Multivitamins, Thera [Multivitamin (formulary)] 1 tab PO DAILY Aspirin EC [Ecotrin Low Dose] 81 mg PO DAILY Spironolactone [Aldactone] 25 mg PO DAILY #30 tab Metoprolol Tartrate [Lopressor] 75 mg PO BID #180 tab amLODIPine [Norvasc] 10 mg PO DAILY #30 tab Furosemide [Lasix] 40 mg PO DAILY #30 tab Levothyroxine Sodium [Levoxyl] 25 mcg PO DAILY Discharge Medication List Atorvastatin Calcium [Lipitor] 80 mg PO HS 10/16/13 [History] Clopidogrel Bisulfate [Plavix] 75 mg PO DAILY 10/16/13 [History] PARoxetine HCL [Paxil] 40 mg PO DAILY 10/16/13 [History] Hydrocodone/Acetaminophen [Hydrocodone-Acetamin 10-325 mg] 1 tab PO QID PRN 09/09/15 [History] Levothyroxine Sodium [Synthroid] 200 mcg PO DAILY 09/09/15 [History] rOPINIRole HCL [Requip] 1 mg PO HS 09/09/15 [History] lisinopriL [Zestril] 20 mg PO BID #60 tab 02/23/17 [Rx] Aspirin EC [Ecotrin Low Dose] 81 mg PO DAILY 06/09/20 [History] Multivitamins, Thera [Multivitamin (formulary)] 1 tab PO DAILY 06/09/20 [History] buPROPion XL [Wellbutrin XL] 150 mg PO DAILY 06/09/20 [History] Metoprolol Tartrate [Lopressor] 75 mg PO BID #180 tab 06/13/20 [Rx] Spironolactone [Aldactone] 25 mg PO DAILY #30 tab 06/13/20 [Rx] amLODIPine [Norvasc] 10 mg PO DAILY #30 tab 06/13/20 [Rx] Furosemide [Lasix] 40 mg PO DAILY #30 tab 06/14/20 [Rx] Levothyroxine Sodium [Levoxyl] 25 mcg PO DAILY 11/03/21 [History] Albuterol Inhaler [Ventolin Hfa Inhaler] 2 puff INHALATION RT-QID PRN #8 gm 11/05/21 [Rx] Lactobacillus Acidoph & Bulgar [Lactinex] 1 each PO TID packet 11/05/21 [Rx] Nystatin 100,000 Unit/gm Powd [Mycostatin Powder] 1 applic TOPICAL TID each 11/05/21 [Rx] Follow up Appointment(s)/Referral(s): Jhoan Alcocer DO [Primary Care Provider] - 3 Days [facility]Infusion [NON-STAFF] - 1 Week [facility], [REFERRING] - 1 Week [facility] Visiting Nurse, [NON-STAFF] - 1 Week Discharge Disposition: HOME WITH HOME HEALTH SERVICES
[2021-11-06] MEDS: lisinopriL 20 MG TAB PO SCH ×2 (09:24→21:10)
[2021-11-06] MEDS: LACTOBACILLUS ACIDOPH & BULGAR 1 EACH PACKET PO SCH ×4 (09:24→21:15)
[2021-11-06] MEDS: PARoxetine 20 MG TAB PO SCH (09:24)
[2021-11-06] MEDS: SPIRONOLACTONE 25 MG TAB PO SCH (09:24)
[2021-11-06] MEDS: METOPROLOL TARTRATE 25 MG TAB PO SCH ×2 (09:24→21:10)
[2021-11-06] MEDS: CLOPIDOGREL 75 MG TAB PO SCH (09:24)
[2021-11-06] MEDS: buPROPion XL 150 MG TAB.ER.24H PO SCH (09:25)
[2021-11-06] MEDS: FUROSEMIDE 40 MG TAB PO SCH (09:25)
[2021-11-06] MEDS: MAG HYDROX/AL HYDROX/SIMETH 30 ML, LIDOCAINE VISCOUS 2% 30 ML, diphenhydrAMINE ELIXIR 7... PO SCH ×12 (09:25→21:14)
[2021-11-06] MEDS: amLODIPine 10 MG TAB PO SCH (09:25)
[2021-11-06] MEDS: PANTOPRAZOLE 40 MG/10 ML VIAL IVP SCH (09:25)
[2021-11-06] MEDS: MULTIVITAMINS, THERA 1 EACH TAB PO SCH (09:25)
[2021-11-06] MEDS: ASPIRIN 81 MG PO SCH (09:25)
[2021-11-06] MEDS: SILVER sulfADIAZINE Cream 400 GM 1 APPLIC APPLIC TOPICAL SCH (09:26)
[2021-11-06] MEDS: NYSTATIN 100,000 UNIT/GM OINT 30 GM TUBE TOPICAL SCH ×3 (09:26→23:24)
[2021-11-06] MEDS: NYSTATIN 100,000 UNIT/GM POWD 15 GM TOPICAL SCH ×3 (09:30→23:24)
--- NOTE | 2021-11-06 11:31 | CA ---
Transthoracic Echo Report Name: Radha Buckley Age: 61 Gender: F : 1960 Exam Date: 11/06/2021 09:35 Exam Location: [facility] Ht (in): 63 Wt (lb): 380 Ordering Physician: Radha Spence Attending/Referring Phys: Hematology Technician Ekta Burr RDCS Procedure CPT: Indications: Orthopnea, exertional shortness of breath Cardiac Hx: Technical Quality: Technically difficult study Contrast 1: Lumason Total Dose (mL): 1 Contrast 2: Total Dose (mL): MEASUREMENTS (Male / Female) Normal Values 2D ECHO LV Diastolic Diameter PLAX 5.4 cm 4.2 - 5.9 / 3.9 - 5.3 cm LV Systolic Diameter PLAX 4.4 cm IVS Diastolic Thickness 1.7 cm 0.6 - 1.0 / 0.6 - 0.9 cm LVPW Diastolic Thickness 2.2 cm 0.6 - 1.0 / 0.6 - 0.9 cm LV Relative Wall Thickness 0.7 RV Internal Dim ED PLAX 2.1 cm M-MODE Aortic Root Diameter MM 3.7 cm LA Systolic Diameter MM 3.4 cm LA Ao Ratio MM 0.9 MV E Point Septal Separation 2.1 cm AV Cusp Separation MM 1.7 cm DOPPLER AV Peak Velocity 111.9 cm/s AV Peak Gradient 5.0 mmHg MV Area PHT 4.6 cm??? MR Peak Velocity 145.6 cm/s MR Peak Gradient 8.5 mmHg Mitral E Point Velocity 60.6 cm/s Mitral A Point Velocity 42.4 cm/s Mitral E to A Ratio 1.4 MV Deceleration Time 163.3 ms TR Peak Velocity 113.3 cm/s TR Peak Gradient 5.1 mmHg Right Ventricular Systolic Press 10.1 mmHg FINDINGS Left Ventricle Severely increased septal wall thickness. Severely increased posterior wall thickness. Left ventricular ejection fraction is estimated at 35-40 %. Global hypokinesis. Right Ventricle The right ventricle is normal in size and function. Right Atrium The right atrium is normal in size. Left Atrium The left atrium is normal in size. Mitral Valve Structurally normal mitral valve without significant stenosis or prolapse. There is mild mitral regurgitation. Aortic Valve Structurally normal aortic valve without significant sclerosis or stenosis. There is no aortic regurgitation. Tricuspid Valve Structurally normal tricuspid valve without significant stenosis. Pulmonary artery systolic pressure is normal. Mild tricuspid regurgitation. Pulmonic Valve Pulmonic valve not well visualized. Pericardium Normal pericardium without effusion. Aorta Normal aortic root dimension. CONCLUSIONS Lumason ECHO contrast used for improved visualization of the endocardial borders (inadequate visualization of two or more contiguous segments). Technically difficult study. 1. Moderate global hypokinesis with no clear segmental wall motion abnormality 2. Mild mitral and tricuspid regurgitation Previewed by: Dr. Derian Thomas MD (Electronically Signed) Final Date: 06 November 2021 11:30
--- NOTE | 2021-11-06 13:37 | XR ---
EXAMINATION TYPE: XR chest 2V DATE OF EXAM: 11/06/2021 COMPARISON: 11/02/2021 HISTORY: Shortness of breath TECHNIQUE: Frontal and lateral views of the chest are obtained. FINDINGS: Scattered senescent parenchymal changes noted. Hyperinflation compatible with COPD. Cardiomegaly with pulmonary venous congestion. Right infrahilar strandy density may reflect atelectas is or developing infiltrate. Mediastinal structures are stable and grossly unremarkable. No evidence for hilar prominence. Degenerative changes dorsal spine. IMPRESSION: 1. Cardiomegaly with pulmonary venous congestion. Right infrahilar strandy density may reflect atelec tasis or developing infiltrate.
[2021-11-06 17:41] LABS: Glucose,Whole Blood 212 mg/dL (70-110)
[2021-11-06] MEDS: ATORVASTATIN 80 MG TAB PO SCH (21:10)
[2021-11-07] MEDS: HYDROcodone/APAP 10-325MG 1 EACH TAB PO PRN ×2 (03:43→10:50)
[2021-11-07 04:26] VITALS: TEMP 97.9
[2021-11-07] MEDS: LEVOTHYROXINE 25 MCG TAB PO SCH (05:47)
[2021-11-07] MEDS: LEVOTHYROXINE 100 MCG TAB PO SCH (05:48)
[2021-11-07] MEDS: AMPICILLIN-SULBACTAM 3 GM in SODIUM CHLORIDE 0.9% 100 ML IVPB SCH ×2 (05:49→11:43)
[2021-11-07 07:29] VITALS: BP 153/84
[2021-11-07] MEDS: MULTIVITAMINS, THERA 1 EACH TAB PO SCH (08:16)
[2021-11-07] MEDS: amLODIPine 10 MG TAB PO SCH (08:16)
[2021-11-07] MEDS: PANTOPRAZOLE 40 MG/10 ML VIAL IVP SCH (08:16)
[2021-11-07] MEDS: CLOPIDOGREL 75 MG TAB PO SCH (08:16)
[2021-11-07] MEDS: buPROPion XL 150 MG TAB.ER.24H PO SCH (08:16)
[2021-11-07] MEDS: ASPIRIN 81 MG PO SCH (08:16)
[2021-11-07] MEDS: FUROSEMIDE 40 MG TAB PO SCH (08:16)
[2021-11-07] MEDS: METOPROLOL TARTRATE 25 MG TAB PO SCH (08:16)
[2021-11-07] MEDS: lisinopriL 20 MG TAB PO SCH (08:16)
[2021-11-07] MEDS: SPIRONOLACTONE 25 MG TAB PO SCH (08:17)
[2021-11-07] MEDS: PARoxetine 20 MG TAB PO SCH (08:17)
[2021-11-07] MEDS: MAG HYDROX/AL HYDROX/SIMETH 30 ML, LIDOCAINE VISCOUS 2% 30 ML, diphenhydrAMINE ELIXIR 7... PO SCH ×4 (08:18)
[2021-11-07] MEDS: NYSTATIN 100,000 UNIT/GM POWD 15 GM TOPICAL SCH (08:20)
[2021-11-07] MEDS: NYSTATIN 100,000 UNIT/GM OINT 30 GM TUBE TOPICAL SCH (08:21)
[2021-11-07] MEDS: IPRATROPIUM-ALBUTEROL 3 ML NEB INHALATION PRN (08:23)
[2021-11-07 08:35] VITALS: PULSE 90
[2021-11-07 09:47] VITALS: RESP 18
--- NOTE | 2021-11-07 10:42 | P.GSHP ---
History of Present Illness H&P Date: 11/04/21 Chief Complaint: Painful elongated mycotic nails 10 This is a 61-year-old female with past medical history of morbid obesity, CAD with stent placement 2, CHF, prior nicotine dependence and multiple other medical issues presented to the ER with complaints of lower extremity cellulitis, severe inflammation of skin folds of his flanks, and umbilical and groin areas and reports that her home is infested with bedbugs. Also reports she does not have a bed and has been sitting up in a chair sleeping, significant sweating which she attributes to her sleeping position. Denies chest pain, palpitations or shortness of breath. Denies lightheadedness dizziness or focal deficits. Denies nausea vomiting or diarrhea. He should is being seen today for treatment of painful elongated mycotic nails of bilateral lower extremities Past Medical History Past Medical History: Heart Failure, Hypertension, Myocardial Infarction ([place]) Additional Past Medical History / Comment(s): hx anemia, diverticulitis, migraines, hypoglycemia, hx kidney stone, edwards cyst behind rt knee Last Myocardial Infarction Date:: 04/14/13 History of Any Multi-Drug Resistant Organisms: None Reported Past Surgical History: Bariatric Surgery, Bowel Resection, Section, Cholecystectomy, Heart Catheterization With Stent, Orthopedic Surgery Additional Past Surgical History / Comment(s): thyroidectomy,rt oopherectomy, left knee arthroscopic, bariatric sleeve, carmela heel spurs, lab band Past Anesthesia/Blood Transfusion Reactions: Postoperative Nausea & Vomiting (PONV) Additional Past Anesthesia/Blood Transfusion Reaction / Comment(s): Pt has received blood in past without reaction. Date of Last Stent Placement:: 2012 Past Psychological History: No Psychological Hx Reported Additional Psychological History / Comment(s): As of 11/03/2021: Patient lives with disabled and her brother. She drives. Uses a cane. Is open with [employer] on aging. Has oxygen at home. Concentrator and portable tanks. Supplied by [employer]. 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 Has been out twice, will return 3 more times. Smoking Status: Former smoker Past Alcohol Use History: None Reported Additional Past Alcohol Use History / Comment(s): Pt started smoking in 1978 and quit in 2002. Past Drug Use History: None Reported - Past Family History Father Family Medical History: Myocardial Infarction ([place]) Additional Family Medical History / Comment(s): Father of a [place] at the age of 64 yrs. Mother Family Medical History: Musculoskeletal Disorder, Neurologic Disorder Additional Family Medical History / Comment(s): Mother of MS at the age of 64 yrs. Medications and Allergies Home Medications Medication Instructions Recorded Confirmed Type Atorvastatin Calcium [Lipitor] 80 mg PO HS 10/16/13 11/02/21 History Clopidogrel Bisulfate [Plavix] 75 mg PO DAILY 10/16/13 11/02/21 History PARoxetine HCL [Paxil] 40 mg PO DAILY 10/16/13 11/02/21 History Hydrocodone/Acetaminophen 1 tab PO QID PRN 09/09/15 11/02/21 History [Hydrocodone-Acetamin 10-325 mg] Levothyroxine Sodium [Synthroid] 200 mcg PO DAILY 09/09/15 11/02/21 History rOPINIRole HCL [Requip] 1 mg PO HS 09/09/15 11/02/21 History lisinopriL [Zestril] 20 mg PO BID #60 tab 02/23/17 11/02/21 Rx Aspirin EC [Ecotrin Low Dose] 81 mg PO DAILY 06/09/20 11/02/21 History Multivitamins, Thera [Multivitamin 1 tab PO DAILY 06/09/20 11/02/21 History (formulary)] buPROPion XL [Wellbutrin XL] 150 mg PO DAILY 06/09/20 11/02/21 History Metoprolol Tartrate [Lopressor] 75 mg PO BID #180 tab 06/13/20 11/02/21 Rx Spironolactone [Aldactone] 25 mg PO DAILY #30 tab 06/13/20 11/02/21 Rx amLODIPine [Norvasc] 10 mg PO DAILY #30 tab 06/13/20 11/02/21 Rx Furosemide [Lasix] 40 mg PO DAILY #30 tab 06/14/20 11/02/21 Rx Levothyroxine Sodium [Levoxyl] 25 mcg PO DAILY 11/03/21 11/03/21 History Albuterol Inhaler [Ventolin Hfa 2 puff INHALATION RT-QID PRN #8 gm 11/05/21 Rx Inhaler] Lactobacillus Acidoph & Bulgar 1 each PO TID packet 11/05/21 Rx [Lactinex] Nystatin 100,000 Unit/gm Powd 1 applic TOPICAL TID each 11/05/21 Rx [Mycostatin Powder] Allergies Allergy/AdvReac Type Severity Reaction Status Date / Time Iodinated Contrast Media Allergy Severe Anaphylaxis Verified 11/02/21 19:45 [Iodinated Contrast Media - IV Dye] ketorolac tromethamine Allergy Severe Anaphylaxis Verified 11/02/21 19:45 [From Toradol] methylprednisolone sodium Allergy Severe Anaphylaxis Verified 11/02/21 19:45 succinate [From Solu-Medrol] heparin AdvReac Rash/Hives Verified 11/02/21 19:45 Surgical - Exam Vital Signs Temp Pulse Resp BP Pulse Ox 98.5 F 96 16 191/87 95 11/02/21 15:06 11/02/21 15:06 11/02/21 15:06 11/02/21 15:06 11/02/21 15:06 - Cardiovascular Peter pulses are diminished bilateral are nonpalpable. Significant lymphedema bilateral chronic noncompressible. There is no digital hair 10 remedies are cool to cool - Integumentary Patient has elongated painful dystrophic mycotic nails 10 thick with mycotic debris to the proximal nail fold the mycotic debris is white yellow in nature and also has ulcerations of bilateral lower extremities - Neurologic All epicritic and pallesthetic incisions intact and symmetrical bilateral - Musculoskeletal Patient has decreased range of motion of the ankle joint subtalar joint and midtarsal joint and metatarsophalangeal joints bilateral inverters everters plantar flexors dorsiflexors grossly intact symmetrical bilateral Results - Labs 11/05/21 05:09 11/05/21 05:09 Abnormal Lab Results - Last 24 Hours (Table) 11/06/21 Range/Units 17:30 POC Glucose (mg/dL) 212 H (70-110) mg/dL Microbiology - Last 24 Hours (Table) 11/02/21 18:20 Blood Culture - Preliminary Blood No Growth after 96 hours 11/02/21 18:32 Blood Culture - Preliminary Blood No Growth after 96 hours Assessment and Plan Assessment: Painful mycotic nails 10 with peripheral arterial disease bilateral Plan: Exam discussed with patient findings and treatment due to the patient systemic conditions patient would benefit from debridement of these nails. The nails were debrided manually 10 remove all mycotic debris from the nail plate and nailbed to patient's tolerance. Suggest patient have periodic care of these as well as to apply antifungal's to the area to help prevent and treat this infection. Patient is to see us in the clinic after discharge.
[2021-11-07 10:49] VITALS: BMI 67.3
[2021-11-07] MEDS: SILVER sulfADIAZINE Cream 400 GM 1 APPLIC APPLIC TOPICAL SCH (10:51)
[2021-11-07] MEDS: LACTOBACILLUS ACIDOPH & BULGAR 1 EACH PACKET PO SCH (10:52)
[2021-11-07] MEDS ORDERED: FUROSEMIDE 10 MG/ML 4 ML VIAL IV STA (11:15)
--- NOTE | 2021-11-07 15:54 | P.PN ---
Subjective Progress Note Date: 11/06/21 Principal diagnosis: Breast fold and abdominal wall cellulitis Patient is a 61-year-old female morbidly obese [facility] with bilateral groin and breast fold swelling or redness concerning for cutaneous candidiasis secondary cellulitis. On today's evaluation that is 11/06/2021, patient continues to be afebrile, the patient is a breathing comfortably on nasal cannula oxygen, the patient denies any chest pain or shortness of breath or cough, the patient abdominal fold pain and redness has decreased in intensity as well as bilateral breast fold pain and redness, the patient denies having any diarrhea Objective - Vital Signs Vital signs: Vital Signs Temp 99 F 11/06/21 07:00 Pulse 70 11/06/21 07:00 Resp 18 11/06/21 07:00 BP 161/79 11/06/21 07:00 Pulse Ox 97 11/06/21 07:00 FiO2 Intake & Output 11/05/21 11/06/21 11/06/21 18:59 06:59 18:59 Intake Total 480 120 Balance 480 120 Intake: Oral 480 120 Other: Voiding Method Toilet # Voids 2 1 1 - Exam GENERAL DESCRIPTION: A middle-age female lying in bed in no distress RESPIRATORY SYSTEM: Unlabored breathing , decreased breath sounds at bases HEART: S1 S2 regular rate and rhythm , ABDOMEN: Soft , no tenderness, abdominal fold swelling redness has decreased as well as breast fold swelling and redness EXTREMITIES: No edema feet - Labs CBC & Chem 7: 11/05/21 05:09 11/05/21 05:09 Labs: Microbiology - Last 24 Hours (Table) 11/02/21 18:32 Blood Culture - Preliminary Blood No Growth after 72 hours 11/02/21 18:20 Blood Culture - Preliminary Blood No Growth after 72 hours Assessment and Plan (1) Abdominal wall cellulitis Current Visit: Yes Status: Acute Code(s): L03.311 - CELLULITIS OF ABDOMINAL WALL SNOMED Code(s): 21538310 (2) Intertrigo Current Visit: Yes Status: Acute Code(s): L30.4 - ERYTHEMA INTERTRIGO SNOMED Code(s): 02052130 Plan: 1patient with extensive abdominal fold as well as breast fold cutaneous candidiasis with secondary cellulitis likely from gram-positive skin bob less likely gram-negative infection. 2 patient has shown some clinical improvement both in the breast fold as well as abdominal wall cellulitis, patient will continue with Unasyn 3 g every 6 hours along with nystatin powder to the breast for as well as groin fold area for another 24 hour before transitioning her to oral antibiotics. Time with Patient: Less than 30
--- NOTE | 2021-11-07 15:56 | P.PN ---
Subjective Progress Note Date: 11/07/21 Principal diagnosis: Breast fold and abdominal wall cellulitis Patient is a 61-year-old female morbidly obese [facility] with bilateral groin and breast fold swelling or redness concerning for cutaneous candidiasis secondary cellulitis. On today's evaluation that is 11/07/2021, patient remains to be afebrile, the patient is breathing comfortably on nasal cannula oxygen, the patient denies chest pain shortness of breath or cough, the patient abdominal fold as well as breast for pain and redness has decreased in intensity , the patient denies having any diarrhea Objective - Vital Signs Vital signs: Vital Signs Temp 97.9 F 11/07/21 07:28 Pulse 90 11/07/21 08:35 Resp 18 11/07/21 08:00 BP 153/84 11/07/21 07:28 Pulse Ox 92 L 11/07/21 08:26 FiO2 Intake & Output 11/06/21 11/07/21 11/07/21 18:59 06:59 18:59 Intake Total 600 Balance 600 Weight 172.365 kg Intake: Oral 600 Other: Voiding Method Toilet # Voids 2 1 1 - Exam GENERAL DESCRIPTION: A middle-age female lying in bed in no distress RESPIRATORY SYSTEM: Unlabored breathing , decreased breath sounds at bases HEART: S1 S2 regular rate and rhythm , ABDOMEN: Soft , no tenderness, abdominal fold as well as breast fold swelling and redness has decreased in intensity EXTREMITIES: No edema feet - Labs CBC & Chem 7: 11/05/21 05:09 11/05/21 05:09 Labs: Abnormal Lab Results - Last 24 Hours (Table) 11/06/21 Range/Units 17:30 POC Glucose (mg/dL) 212 H (70-110) mg/dL Microbiology - Last 24 Hours (Table) 11/02/21 18:20 Blood Culture - Preliminary Blood No Growth after 96 hours 11/02/21 18:32 Blood Culture - Preliminary Blood No Growth after 96 hours Assessment and Plan (1) Abdominal wall cellulitis Current Visit: Yes Status: Acute Code(s): L03.311 - CELLULITIS OF ABDOMINAL WALL SNOMED Code(s): 06204651 (2) Intertrigo Current Visit: Yes Status: Acute Code(s): L30.4 - ERYTHEMA INTERTRIGO SNOMED Code(s): 65373687 Plan: 1patient with extensive abdominal fold as well as breast fold cutaneous candidi asis with secondary cellulitis likely from gram-positive skin bob less likely gram-negative infection. 2 patient has shown some clinical improvement both in the breast fold as well as abdominal wall cellulitis, patient will finish therapy with oral Augmentin 10 days along with nystatin powder to the breast for as well as groin fold area and close outpatient follow-up, prescription was sent to the pharmacy Time with Patient: Less than 30
== END 2021-11-07 16:07 | disposition home health service (06) ==
LOC: EC 15:04 → 6NMEDSUR 20:14
PROVIDERS: ADMIT Family Medicine; ATTEND Family Medicine
DX: L03.116 Cellulitis of left lower limb (principal); L03.311 Cellulitis of abdominal wall; L03.115 Cellulitis of right lower limb; L30.4 Erythema intertrigo; N17.9 Acute kidney failure, unspecified; I11.0 Hypertensive heart disease with heart failure; I50.22 Chronic systolic (congestive) heart failure; I42.9 Cardiomyopathy, unspecified; B37.2 Candidiasis of skin and nail; B35.1 Tinea unguium; B88.8 Other specified infestations; I25.2 Old myocardial infarction; I87.2 Venous insufficiency (chronic) (peripheral); J44.9 Chronic obstructive pulmonary disease, unspecified; I25.10 Atherosclerotic heart disease of native coronary artery without angina pectoris; I08.1 Rheumatic disorders of both mitral and tricuspid valves; K12.0 Recurrent oral aphthae; D64.9 Anemia, unspecified; G43.909 Migraine, unspecified, not intractable, without status migrainosus; I73.9 Peripheral vascular disease, unspecified; E66.01 Morbid (severe) obesity due to excess calories; Z68.44 Body mass index [BMI] 60.0-69.9, adult; Z79.02 Long term (current) use of antithrombotics/antiplatelets; Z79.890 Hormone replacement therapy; Z79.82 Long term (current) use of aspirin; Z79.899 Other long term (current) drug therapy; Z88.5 Allergy status to narcotic agent; Z91.041 Radiographic dye allergy status; Z88.8 Allergy status to other drugs, medicaments and biological substances; Z87.891 Personal history of nicotine dependence; Z95.5 Presence of coronary angioplasty implant and graft; Z87.442 Personal history of urinary calculi; Z87.19 Personal history of other diseases of the digestive system; Z90.49 Acquired absence of other specified parts of digestive tract; Z98.84 Bariatric surgery status; Z98.891 History of uterine scar from previous surgery; E89.0 Postprocedural hypothyroidism; Z90.721 Acquired absence of ovaries, unilateral; Z98.890 Other specified postprocedural states; Z82.49 Family history of ischemic heart disease and other diseases of the circulatory system; Z82.0 Family history of epilepsy and other diseases of the nervous system
CPT/HCPCS: 96376 ×4; 96366 ×6; 96367; 96375; 96365; 99284; 36415; 94640 ×4; 94760 ×2; 93005; 97162; 97166; 83880 ×2; 80053 ×2; 80048 ×2; 83605; 84484; 85025 ×4; 85610; 85730; 87040; 71045; 71046; G0378 ×6; C8929; J2543 ×2; J0295 ×5; C9113 ×5; Q9950; 93306